=== PATIENT | female | born 1945 | race Caucasian/White ===

== ENCOUNTER 2016-12-06 09:50 | Day surgery (SDC) | payer MEDICARE, BC ==
[~2016-12-06 09:50] MED LIST: Dexamethasone 4 MG/ML SDV ONE; Midazolam 1 MG/ML 2 ML SDV ONE
[2016-12-06] MEDS ORDERED: Acetaminophen/Codeine 300-30 MG Tab PO PRN (10:00)
[2016-12-06] MEDS ORDERED: Acetaminophen 325 MG Tab PO PRN (10:00)
[2016-12-06] MEDS ORDERED: Phenylephrine 10% Ophth Soln 5 ML Bot EYELF ONE (10:00)
[2016-12-06] MEDS ORDERED: Timolol Maleate 0.5% Ophth Soln 5 ML Bottle EYELF ONE (10:00)
[2016-12-06] MEDS ORDERED: Povidone-Iodine 5% Sterile Ophth Soln 30 ML Bottle EYELF ONE ×2 (10:00→10:59)
[2016-12-06] MEDS ORDERED: Moxifloxacin 0.5% Ophth Soln 3 ML Bottle EYELF ONE (10:00)
[2016-12-06] MEDS ORDERED: Phenylephrine 10% Ophth Soln 5 ML Bot EYELF PRN (10:00)
[2016-12-06] MEDS ORDERED: Proparacaine 0.5% Ophth Soln 15 ML Bottle EYELF ONE (10:00)
[2016-12-06] MEDS ORDERED: Sodium Chloride 0.9% 10 ML Syringe FLUSH PRN (10:00)
[2016-12-06] MEDS ORDERED: Cataract Ophth Solution EYELF ONE (10:00)
[2016-12-06] MEDS ORDERED: Ondansetron 4 MG/2 ML SDV IVPUSH PRN (10:00)
[2016-12-06] MEDS ORDERED: Dexamethasone/Neomycin/Polymyxin B Ophth Oint 3.5 GM Tube EYELF ONE (10:59)
[2016-12-06] MEDS ORDERED: Apraclonidine 0.5% Ophth Soln 5 ML Bot EYELF ONE (10:59)
[2016-12-06] MEDS ORDERED: Diclofenac Sodium 0.1% Ophth Soln 5 ML Bottle EYELF ONE (10:59)
[2016-12-06] MEDS ORDERED: Chondroitin Sulfate/Hyaluronate Sodium Ophth Inj 0.75 ML Syringe EYELF ONE (11:00)
[2016-12-06] MEDS ORDERED: Lidocaine 1% 30 ML SDV ONE (11:00)
[2016-12-06] MEDS ORDERED: Balanced Salt Solution Ophth Irrig 500 ML Bottle IOCULAR ONE (11:00)
[2016-12-06] MEDS ORDERED: Vancomycin 500 MG SDV EYELF ONE (11:00)
[2016-12-06 11:49] VITALS: BP 134/68
[2016-12-06] MEDS ORDERED: Midazolam 1 MG/ML 2 ML SDV IV ONE (14:13)
[2016-12-06] MEDS ORDERED: Dexamethasone 4 MG/ML SDV IV ONE (14:13)
--- NOTE | 2016-12-06 14:56 | OR ---
DATE: 12/06/2016 PREOPERATIVE DIAGNOSIS: Cataract, left eye. POSTOPERATIVE DIAGNOSIS: Cataract, left eye. PROCEDURE: Extracapsular cataract extraction with intraocular lens implant, left eye. ANESTHESIA: Topical/local MAC. COMPLICATIONS: None. INDICATION: Ms. Velazco was seen in the clinic. She has complained of a slow progressive decrease in vision. She has difficulty seeing images, difficulty seeing at distance. Best spectacle corrected vision to the level of 20/50. Clinical examination reveals mixed cataract. I explained options and offered cataract surgery. I explained risks, including, but not limited to, infection, retinal detachment, loss of vision, need for additional surgery, and risks associated with anesthesia. We also discussed implant options. She has requested a monofocal implant. She is comfortable wearing spectacle correction following surgery if necessary. She voiced an understanding with respect to risks and limitations and wished to proceed. OPERATIVE DESCRIPTION: After informed consent was obtained and the risks, benefits, and alternatives were explained, the patient was brought to the operative suite and topical anesthesia was administered. The patient was then prepped and draped in the sterile fashion and attention was placed on the left eye. A sterile lid speculum was placed into the left eye to allow operative exposure. A full-thickness paracentesis was made in the temporal portion of the operative eye. Preservative-free lidocaine 0.1 mL was injected into the anterior chamber followed by viscoelastic. A full-thickness corneal incision was then made into the anterior chamber. A bent needle cystotome was used to create a small nghia in the anterior capsule. The capsulorrhexis forceps was then used to create a 360-degree curvilinear capsulorrhexis. The nucleus was then removed using a phacoemulsification handpiece and the remaining cortical material was then removed with irrigation and aspiration handpiece. Following removal of the cortical material, the capsular bag was then inspected and noted to be free of any holes or tears. Viscoelastic was then injected into the capsular bag and the intraocular lens was inserted into the capsular bag. No complications occurred. The viscoelastic material was then removed from both the anterior and posterior chambers and from behind the IOL. The lens and capsular bag were then reinspected. The IOL was well centered and the capsular bag intact. The wound and paracentesis sites were inspected and hydrated with balanced saline solution. Both were found to be self-sealing. The intraocular pressure was assessed digitally and found to be within normal range. A good red reflex was noted at the completion of the procedure. No complications occurred during the operation. At the completion of the procedure, Maxitrol, Voltaren, and Iopidine drops were placed into the operative eye. A sterile eye shield was placed over the operative eye and the patient was transported to the postoperative recovery area having tolerated the procedure well. Postoperative instructions were given along with a postoperative appointment. The patient was advised to call with any questions or concerns. [facility] /[id number]
== END 2016-12-06 11:50 | disposition home or self-care (01) ==
LOC: DL.SDS 09:50
PROVIDERS: ATTEND Ophthalmology
PROC: 08RK3JZ Replacement of Left Lens with Synthetic Substitute, Percutaneous Approach (ICD-10-PCS; principal; 2016-12-06)
DX: H26.9 Unspecified cataract (principal); F41.8 Other specified anxiety disorders; F32.9 Major depressive disorder, single episode, unspecified; E78.5 Hyperlipidemia, unspecified; E66.9 Obesity, unspecified; M81.0 Age-related osteoporosis without current pathological fracture; R73.03 Prediabetes; Z79.891 Long term (current) use of opiate analgesic; Z79.899 Other long term (current) drug therapy; Z88.8 Allergy status to other drugs, medicaments and biological substances
CPT/HCPCS: 00142; 66984; A9270; J1100; J2250; J3370; J7050; V2632

== ENCOUNTER 2016-12-13 07:00 | Day surgery (SDC) | payer MEDICARE, BC ==
[2016-12-13] MEDS ORDERED: Acetaminophen 325 MG Tab PO PRN (07:30)
[2016-12-13] MEDS ORDERED: Acetaminophen/Codeine 300-30 MG Tab PO PRN (07:30)
[2016-12-13] MEDS ORDERED: Cataract Ophth Solution EYERT ONE (07:30)
[2016-12-13] MEDS ORDERED: Phenylephrine 10% Ophth Soln 5 ML Bot EYERT ONE (07:30)
[2016-12-13] MEDS ORDERED: Sodium Chloride 0.9% 10 ML Syringe FLUSH PRN (07:30)
[2016-12-13] MEDS ORDERED: Ondansetron 4 MG/2 ML SDV IVPUSH PRN (07:30)
[2016-12-13] MEDS ORDERED: Moxifloxacin 0.5% Ophth Soln 3 ML Bottle EYERT ONE (07:30)
[2016-12-13] MEDS ORDERED: Phenylephrine 10% Ophth Soln 5 ML Bot EYERT PRN (07:30)
[2016-12-13] MEDS ORDERED: Timolol Maleate 0.5% Ophth Soln 5 ML Bottle EYERT ONE (07:30)
[2016-12-13] MEDS ORDERED: Povidone-Iodine 5% Sterile Ophth Soln 30 ML Bottle EYERT ONE ×2 (07:30→08:52)
[2016-12-13] MEDS ORDERED: Proparacaine 0.5% Ophth Soln 15 ML Bottle EYERT ONE (07:30)
[2016-12-13] MEDS ORDERED: Dexamethasone 4 MG/ML SDV ONE (07:33)
[2016-12-13] MEDS ORDERED: Midazolam 1 MG/ML 2 ML SDV ONE (07:33)
[2016-12-13] MEDS ORDERED: Lidocaine 1% 30 ML SDV ONE (08:51)
[2016-12-13] MEDS ORDERED: Diclofenac Sodium 0.1% Ophth Soln 5 ML Bottle EYERT ONE (08:51)
[2016-12-13] MEDS ORDERED: Dexamethasone/Neomycin/Polymyxin B Ophth Oint 3.5 GM Tube EYERT ONE (08:52)
[2016-12-13] MEDS ORDERED: Apraclonidine 0.5% Ophth Soln 5 ML Bot EYERT ONE (08:52)
[2016-12-13] MEDS ORDERED: Vancomycin 500 MG SDV EYERT ONE (08:53)
[2016-12-13] MEDS ORDERED: Balanced Salt Solution Ophth Irrig 500 ML Bottle IOCULAR ONE (08:53)
[2016-12-13] MEDS ORDERED: Chondroitin Sulfate/Hyaluronate Sodium Ophth Inj 0.75 ML Syringe EYERT ONE (08:53)
[2016-12-13] MEDS ORDERED: Tetracaine HCl/PF 0.5% 4 ML Bottle EYERT ONE (08:55)
[2016-12-13] MEDS ORDERED: Dexamethasone 4 MG/ML SDV IOCULAR ONE (08:57)
--- NOTE | 2016-12-13 09:36 | OR ---
DATE: 12/13/2016 PREOPERATIVE DIAGNOSIS: Cataract, right eye POSTOPERATIVE DIAGNOSIS: Cataract, right eye PROCEDURE: Extracapsular cataract extraction with intraocular lens implant, right eye. ANESTHESIA: Topical/local MAC. COMPLICATIONS: None. INDICATION: Mrs. Velazco was seen in the clinic with complaints of blurred vision. Clinical examination revealed visually significant cataract. I explained options. I offered cataract surgery and I explained risks, including, but not limited to, infection, retinal detachment, loss of vision, need for additional surgery, and risks associated with anesthesia. We discussed implant options. She requested a monofocal implant. She voiced an understanding with respect to risks and wished to proceed. OPERATIVE DESCRIPTION: After informed consent was obtained and the risks, benefits, and alternatives were explained, the patient was brought to the operative suite and topical anesthesia was administered. The patient was then prepped and draped in the sterile fashion and attention was placed on the right eye. A sterile lid speculum was placed into the right eye to allow operative exposure. A full-thickness paracentesis was made in the temporal portion of the operative eye. Preservative-free lidocaine 0.1 mL was injected into the anterior chamber followed by viscoelastic. A full-thickness corneal incision was then made into the anterior chamber. A bent needle cystotome was used to create a small nghia in the anterior capsule. The capsulorrhexis forceps was then used to create a 360-degree curvilinear capsulorrhexis. The nucleus was then removed using a phacoemulsification handpiece and the remaining cortical material was then removed with irrigation and aspiration handpiece. Following removal of the cortical material, the capsular bag was then inspected and noted to be free of any holes or tears. Viscoelastic was then injected into the capsular bag and the intraocular lens was inserted into the capsular bag. No complications occurred. The viscoelastic material was then removed from both the anterior and posterior chambers and from behind the IOL. The lens and capsular bag were then reinspected. The IOL was well centered and the capsular bag intact. The wound and paracentesis sites were inspected and hydrated with balanced saline solution. Both were found to be self-sealing. The intraocular pressure was assessed digitally and found to be within normal range. A good red reflex was noted at the completion of the procedure. No complications occurred during the operation. At the completion of the procedure, Maxitrol, Voltaren, and Iopidine drops were placed into the operative eye. A sterile eye shield was placed over the operative eye and the patient was transported to the postoperative recovery area having tolerated the procedure well. Postoperative instructions were given along with a postoperative appointment. The patient was advised to call with any questions or concerns. [facility] /[id number]
[2016-12-13 10:49] VITALS: BP 119/66
[2016-12-13] MEDS ORDERED: Dexamethasone 4 MG/ML SDV IV ONE (13:18)
[2016-12-13] MEDS ORDERED: Midazolam 1 MG/ML 2 ML SDV IV ONE (13:18)
== END 2016-12-13 09:50 | disposition home or self-care (01) ==
LOC: DL.SDS 07:00
PROVIDERS: ATTEND Ophthalmology
DX: H26.9 Unspecified cataract (principal); F41.8 Other specified anxiety disorders; E66.9 Obesity, unspecified; E78.5 Hyperlipidemia, unspecified; Z68.30 Body mass index [BMI] 30.0-30.9, adult; R73.03 Prediabetes; Z90.49 Acquired absence of other specified parts of digestive tract; Z90.710 Acquired absence of both cervix and uterus; Z98.890 Other specified postprocedural states; Z88.8 Allergy status to other drugs, medicaments and biological substances
CPT/HCPCS: 00142; 66984; A9270; J1100; J2250; J3370; J7050; V2632

== ENCOUNTER 2021-07-28 09:47 | Emergency (ER) | payer MEDICARE, BC ==
[2021-07-28 11:09] VITALS: BP 141/56; PULSE 65
[2021-07-28 11:21] LABS: ANION GAP 16.4 mEq/L (7-13); CHLORIDE,CL 98 mmol/L (98-107); SODIUM,NA 140 mmol/L (136-145)
[2021-07-28] MEDS ORDERED: Sodium Chloride 0.9% 1,000 ML IV ONE (12:23)
== END 2021-07-28 13:00 | disposition home or self-care (01) ==
LOC: DL.ED 09:47
DX: U07.1 COVID-19 (principal); J10.1 Influenza due to other identified influenza virus with other respiratory manifestations; E78.00 Pure hypercholesterolemia, unspecified; E66.9 Obesity, unspecified; Z68.28 Body mass index [BMI] 28.0-28.9, adult; Z88.8 Allergy status to other drugs, medicaments and biological substances; Z79.82 Long term (current) use of aspirin; Z79.899 Other long term (current) drug therapy
CPT/HCPCS: 36415; 71045; 80053; 83605; 84484; 85025; 85379; 93005; 99285; J7030

== ENCOUNTER 2024-03-12 09:57 | Observation (INO) | payer MEDICARE, BC ==
[2024-03-12 10:34] LABS: BASOPHILS PERCENT AUTO 0.2 % (0.0-1.0); EOSINOPHILS PERCENT AUTO 3.9 % (1.0-3.0); HEMATOCRIT 35.3 % (37.0-47.0); HEMOGLOBIN 11.1 g/dL (12.0-16.0); LYMPHOCYTES PERCENT AUTO 18.7 % (20.5-50.1); MEAN CORPUSCULAR HEMOGLOBIN 28.1 pg (27.0-34.0); MEAN CORPUSCULAR HGB CONC 31.4 g/dL (33.0-35.0); MEAN CORPUSCULAR VOLUME 89.4 fL (80-100); MONOCYTES PERCENT AUTO 8.9 % (2-8); NEUTROPHILS PERCENT AUTO 68.3 % (42.2-75.2); PLATELET COUNT,PLT 133 10^3/uL (150-450); RED BLOOD CELL COUNT 3.95 10^6/uL (4.2-5.4); WHITE BLOOD CELL COUNT,WBC 5.6 10^3/uL (5.0-10.0)
[2024-03-12 10:48] LABS: APPEARANCE,URINE CLEAR (CLEAR); BILIRUBIN,URINE NEGATIVE (NEGATIVE); COLOR,URINE YELLOW (YELLOW); GLUCOSE,URINE NEGATIVE (NEGATIVE); KETONES,URINE NEGATIVE (NEGATIVE); LEUKOCYTE ESTERASE,URINE NEGATIVE (NEGATIVE); NITRITE,URINE NEGATIVE (NEGATIVE); OCCULT BLOOD,URINE NEGATIVE (NEGATIVE); PH,URINE 6.5 (5.0-9.0); PROTEIN,URINE NEGATIVE (NEGATIVE)
[2024-03-12 10:51] LABS: INR 1.8 (0.9-1.2); PROTHROMBIN TIME 17.7 SEC (9.0-12.0)
[2024-03-12 10:55] LABS: A/G RATIO 1.3; ALBUMIN 3.6 g/dL (3.4-5.0); ANION GAP 10.1 mEq/L (7-13); BILIRUBIN TOTAL 1.4 mg/dL (0.2-1.0); BUN/CREATININE RATIO 21.5 (No establ ref range); CALCIUM 9.6 mg/dL (8.5-10.1); CREATININE 0.93 mg/dL (0.55-1.02); EST CRCL DRUG DOSING (CG) 38.16 mL/min; POTASSIUM,K 4.1 mmol/L (3.5-5.1); PROTEIN TOTAL,TP 6.3 g/dL (6.4-8.2)
[2024-03-12] MEDS: methylPREDNISolone Sodium Succinate 125 MG/2 ML SDV IVPUSH ONE (11:43)
[2024-03-12] MEDS: Albuterol/Ipratropium 3.0-0.5 MG/3 ML Neb Soln NEB ONE (11:43)
[2024-03-12] MEDS ORDERED: Acetaminophen 325 MG Tab PO PRN (13:49)
[2024-03-12] MEDS ORDERED: Melatonin 3 MG Tab PO PRN (13:49)
[2024-03-12] MEDS ORDERED: Ondansetron 4 MG/2 ML SDV IVPUSH PRN (13:49)
[2024-03-12] MEDS ORDERED: guaiFENesin 600 MG Tab.ER PO PRN (14:24)
[2024-03-12] MEDS ORDERED: guaiFENesin/Dextromethorphan 100-10 MG/5 ML Soln 5 ML Cup PO PRN (14:25)
[2024-03-12] MEDS ORDERED: Sodium Chloride 0.9% 10 ML Syringe FLUSH PRN (14:33)
[2024-03-12] MEDS: Carvedilol 3.125 MG Tab PO ONE (14:41)
[2024-03-12] MEDS: Amoxicillin/Clavulanate K 500-125 MG Tab PO ONE (15:04)
[2024-03-12] MEDS: MVI, Adult with Vitamin K 10 ML, Folic Acid 1 MG, Thiamine 100 MG in Lactated Ringers 1... IV ONE (15:04)
[2024-03-12 15:05] LABS: T4 FREE 1.16 ng/dL (0.76-1.46); TSH ULTRASENSITIVE 1.03 uIU/mL (0.36-3.74)
[2024-03-12] MEDS ORDERED: FISH OIL PO SCH (21:00)
[2024-03-12] MEDS ORDERED: OMEGA PO SCH (21:00)
[2024-03-12] MEDS ORDERED: FATTY ACIDS PO SCH (21:00)
[2024-03-12] MEDS ORDERED: [UNRECOGNIZED DRUG - OTHER] PO SCH (21:00)
[2024-03-12] MEDS: Warfarin** 1 MG TABLET PO ONE (21:09)
[2024-03-12] MEDS: Carbidopa/Levodopa 25-250 MG Tab PO SCH (21:09)
[2024-03-12] MEDS: Ferrous Sulfate 325 MG Tab PO SCH (21:10)
[2024-03-12] MEDS: Carvedilol 3.125 MG Tab PO SCH (21:10)
[2024-03-12] MEDS: Amoxicillin/Clavulanate K 500-125 MG Tab PO SCH (21:10)
[2024-03-12] MEDS: Saccharomyces Boulardii (Probiotic) 250 MG Cap PO SCH (21:11)
[2024-03-12] MEDS: Gabapentin 300 MG Cap PO SCH ×2 (21:15→23:39)
[2024-03-12] MEDS: Enoxaparin 40 MG/0.4 ML Syringe SUBCUT SCH (21:16)
[2024-03-12] MEDS: Timolol Maleate 0.5% Ophth Soln 5 ML Bottle EYERT SCH (21:21)
[2024-03-12] MEDS: Latanoprost 0.005% Ophth Soln 2.5 ML Bottle EYERT SCH (21:22)
[2024-03-13] MEDS: LORazepam 0.5 MG Tab PO PRN (00:06)
[2024-03-13 06:07] LABS: BASOPHILS PERCENT AUTO 0.2 % (0.0-1.0); HEMATOCRIT 31.8 % (37.0-47.0); HEMOGLOBIN 10.2 g/dL (12.0-16.0); LYMPHOCYTES PERCENT AUTO 15.6 % (20.5-50.1); MEAN CORPUSCULAR HEMOGLOBIN 28.3 pg (27.0-34.0); MEAN CORPUSCULAR HGB CONC 32.1 g/dL (33.0-35.0); MEAN CORPUSCULAR VOLUME 88.3 fL (80-100); NEUTROPHILS PERCENT AUTO 77.2 % (42.2-75.2); PLATELET COUNT,PLT 127 10^3/uL (150-450)
[2024-03-13 06:19] LABS: INR 1.5 (0.9-1.2)
[2024-03-13 06:34] LABS: ALBUMIN 3.2 g/dL (3.4-5.0); ANION GAP 8.1 mEq/L (7-13); BILIRUBIN TOTAL 1.1 mg/dL (0.2-1.0); BUN/CREATININE RATIO 25.3 (No establ ref range); C-REACTIVE PROTEIN 2.43 ng/dL (<=0.50); CALCIUM 9.3 mg/dL (8.5-10.1); CREATININE 0.83 mg/dL (0.55-1.02); EST CRCL DRUG DOSING (CG) 42.76 mL/min; MAGNESIUM 1.9 mg/dL (1.8-2.4); POTASSIUM,K 4.1 mmol/L (3.5-5.1); PROTEIN TOTAL,TP 5.8 g/dL (6.4-8.2)
[2024-03-13 06:35] LABS: A/G RATIO 1.23
[2024-03-13] MEDS: Aspirin 81 MG Tab.EC PO SCH (07:56)
[2024-03-13] MEDS: DULoxetine 30 MG Cap PO SCH (07:57)
[2024-03-13] MEDS: Furosemide 20 MG Tab PO SCH (07:58)
[2024-03-13] MEDS: Spironolactone 25 MG Tab PO SCH (07:59)
[2024-03-13] MEDS: Cholecalciferol (Vitamin D3) 25 MCG Tab PO SCH (08:01)
[2024-03-13] MEDS ORDERED: Enoxaparin 60 MG/0.6 ML Syringe SUBCUT SCH (09:00)
[2024-03-13] MEDS: Enoxaparin 100 MG/1 ML Syringe SUBCUT SCH (10:03)
[2024-03-13 11:33] VITALS: BP 96/50; PULSE 94
[2024-03-13] MEDS ORDERED: Calcium Carbonate/Vitamin D3 1250 MG-5 MCG Tab PO SCH (13:00)
[2024-03-13] MEDS ORDERED: Warfarin 2 MG Tab PO ONE (21:00)
== END 2024-03-13 11:30 | disposition home or self-care (01) ==
LOC: DL.ED 09:57 → DL.MS 13:04 → DL.ED 13:13
PROVIDERS: ADMIT Internal Medicine; ATTEND Internal Medicine
DX: J20.8 Acute bronchitis due to other specified organisms (principal); I48.92 Unspecified atrial flutter; G20.A1 Parkinson's disease without dyskinesia, without mention of fluctuations; D50.9 Iron deficiency anemia, unspecified; I10 Essential (primary) hypertension; E78.5 Hyperlipidemia, unspecified; I25.10 Atherosclerotic heart disease of native coronary artery without angina pectoris; Z95.1 Presence of aortocoronary bypass graft; Z79.82 Long term (current) use of aspirin; Z79.899 Other long term (current) drug therapy
CPT/HCPCS: 36415; 71045; 80053; 81003; 82306; 83605; 83735; 84439; 84443; 84484; 85025; 85379; 85610; 86140; 87804; 93005; 96374; 97165; 99285; A9270; J1650; J2919; J3411; J7120; U0002; J3490; J7620-GY

== ENCOUNTER 2024-05-17 11:34 | Emergency (ER) | payer MEDICARE, BC ==
[2024-05-17 12:21] LABS: BASOPHILS PERCENT AUTO 0.1 % (0.0-1.0); EOSINOPHILS PERCENT AUTO 0.1 % (1.0-3.0); HEMATOCRIT 36.5 % (37.0-47.0); HEMOGLOBIN 11.4 g/dL (12.0-16.0); LYMPHOCYTES PERCENT AUTO 3.9 % (20.5-50.1); MEAN CORPUSCULAR HEMOGLOBIN 27.4 pg (27.0-34.0); MEAN CORPUSCULAR HGB CONC 31.2 g/dL (33.0-35.0); MEAN CORPUSCULAR VOLUME 87.7 fL (80-100); MONOCYTES PERCENT AUTO 4.7 % (2-8); NEUTROPHILS PERCENT AUTO 91.2 % (42.2-75.2); PLATELET COUNT,PLT 61 10^3/uL (150-450); RED BLOOD CELL COUNT 4.16 10^6/uL (4.2-5.4); WHITE BLOOD CELL COUNT,WBC 15.2 10^3/uL (5.0-10.0)
[2024-05-17 12:30] LABS: INR 3.6 (0.9-1.2)
[2024-05-17 12:38] LABS: A/G RATIO 1.5; ALBUMIN 3.4 g/dL (3.4-5.0); ANION GAP 12.8 mEq/L (7-13); BILIRUBIN TOTAL 3.2 mg/dL (0.2-1.0); BUN/CREATININE RATIO 17.9 (No establ ref range); CALCIUM 8.8 mg/dL (8.5-10.1); CREATININE 1.06 mg/dL (0.55-1.02); EST CRCL DRUG DOSING (CG) 33.48 mL/min; MAGNESIUM 1.6 mg/dL (1.8-2.4); POTASSIUM,K 3.8 mmol/L (3.5-5.1); PROTEIN TOTAL,TP 5.7 g/dL (6.4-8.2)
[2024-05-17] MEDS: Sodium Chloride 0.9% 1,000 ML IV ONE ×2 (12:42→13:30)
[2024-05-17 13:44] LABS: LACTIC ACID 1.8 mmol/L (0.4-2.0)
[2024-05-17] MEDS: Iopamidol 612 MG/ML 100 ML Bottle IVPUSH ONE (14:01)
[2024-05-17] MEDS: LORazepam 0.5 MG Tab PO ONE (16:11)
[2024-05-17 16:29] VITALS: BP 118/75; PULSE 129
== END 2024-05-17 16:18 | disposition hospice, inpatient (51) ==
LOC: DL.ED 11:34
DX: E86.9 Volume depletion, unspecified (principal); E78.00 Pure hypercholesterolemia, unspecified; K21.9 Gastro-esophageal reflux disease without esophagitis; E66.9 Obesity, unspecified; Z86.16 Personal history of COVID-19; Z79.899 Other long term (current) drug therapy; Z79.82 Long term (current) use of aspirin; Z88.8 Allergy status to other drugs, medicaments and biological substances
CPT/HCPCS: 36415; 70450; 71045; 74177; 80053; 83605; 83735; 84484; 85025; 85610; 96360; 96361; 99285; A9270; J7030; Q9967

== ENCOUNTER 2024-05-24 06:42 | Emergency (ER) | payer MEDICARE, BC ==
[2024-05-24] MEDS: Sodium Chloride 0.9% 500 ML IV SCH (07:10)
[2024-05-24 07:24] LABS: BASOPHILS PERCENT AUTO 0.1 % (0.0-1.0); HEMATOCRIT 33.8 % (37.0-47.0); HEMOGLOBIN 10.8 g/dL (12.0-16.0); LYMPHOCYTES PERCENT AUTO 10.2 % (20.5-50.1); MEAN CORPUSCULAR HEMOGLOBIN 27.1 pg (27.0-34.0); MEAN CORPUSCULAR VOLUME 84.7 fL (80-100); MONOCYTES PERCENT AUTO 9.2 % (2-8); NEUTROPHILS PERCENT AUTO 80.5 % (42.2-75.2); PLATELET COUNT,PLT 97 10^3/uL (150-450); RED BLOOD CELL COUNT 3.99 10^6/uL (4.2-5.4); WHITE BLOOD CELL COUNT,WBC 8.5 10^3/uL (5.0-10.0)
[2024-05-24 07:28] LABS: INR 1.7 (0.9-1.2); PROTHROMBIN TIME 16.6 SEC (9.0-12.0)
[2024-05-24 07:29] LABS: ALBUMIN 2.9 g/dL (3.4-5.0); ANION GAP 12.1 mEq/L (7-13); BILIRUBIN TOTAL 1.5 mg/dL (0.2-1.0); CALCIUM 8.2 mg/dL (8.5-10.1); CREATININE 1.07 mg/dL (0.55-1.02); EST CRCL DRUG DOSING (CG) 33.17 mL/min; LACTIC ACID 1.1 mmol/L (0.4-2.0); POTASSIUM,K 3.1 mmol/L (3.5-5.1); PROTEIN TOTAL,TP 5.5 g/dL (6.4-8.2)
[2024-05-24 07:32] LABS: A/G RATIO 1.12
[2024-05-24] MEDS: Aspirin 81 MG Tab.Chew PO ONE (08:32)
[2024-05-24] MEDS: Heparin Sodium/0.45% NaCl 25,000 UNITS/500 ML BAG IV SCH (08:33)
[2024-05-24] MEDS: Heparin Sodium 5,000 Units/ML Vial IV ONE (08:48)
[2024-05-24] MEDS: Iopamidol 612 MG/ML 100 ML Bottle IVPUSH ONE (09:36)
[2024-05-24 13:42] VITALS: BP 124/71; PULSE 81
== END 2024-05-24 14:15 | disposition other institution (70) ==
LOC: DL.ED 06:42
DX: I21.4 Non-ST elevation (NSTEMI) myocardial infarction (principal); I48.92 Unspecified atrial flutter; I25.10 Atherosclerotic heart disease of native coronary artery without angina pectoris; I48.91 Unspecified atrial fibrillation; E78.00 Pure hypercholesterolemia, unspecified; M19.90 Unspecified osteoarthritis, unspecified site; E66.9 Obesity, unspecified; Z86.16 Personal history of COVID-19; Z95.2 Presence of prosthetic heart valve; Z95.5 Presence of coronary angioplasty implant and graft; Z90.49 Acquired absence of other specified parts of digestive tract; Z90.710 Acquired absence of both cervix and uterus; Z88.8 Allergy status to other drugs, medicaments and biological substances; Z79.01 Long term (current) use of anticoagulants; Z79.82 Long term (current) use of aspirin; Z79.899 Other long term (current) drug therapy; Z68.29 Body mass index [BMI] 29.0-29.9, adult
CPT/HCPCS: 36415; 71045; 74177; 80053; 83605; 83880; 84484; 85025; 85610; 85730; 87040; 87077; 93005; 96361; 96365; 96366; 99285; A9270; J1644; J7040; Q9967; 93010

== ENCOUNTER 2024-06-06 09:29 | Emergency (ER) | payer MEDICARE, BC ==
[2024-06-06] MEDS ORDERED: Sodium Chloride 0.9% 10 ML Syringe FLUSH PRN (09:40)
[2024-06-06 09:58] LABS: HEMATOCRIT 37.3 % (37.0-47.0); HEMOGLOBIN 11.9 g/dL (12.0-16.0); LYMPHOCYTES PERCENT AUTO 4.4 % (20.5-50.1); MEAN CORPUSCULAR HEMOGLOBIN 27.1 pg (27.0-34.0); MEAN CORPUSCULAR HGB CONC 31.9 g/dL (33.0-35.0); MONOCYTES PERCENT AUTO 6.2 % (2-8); NEUTROPHILS PERCENT AUTO 89.4 % (42.2-75.2); PLATELET COUNT,PLT 157 10^3/uL (150-450); RED BLOOD CELL COUNT 4.39 10^6/uL (4.2-5.4); WHITE BLOOD CELL COUNT,WBC 25.1 10^3/uL (5.0-10.0)
[2024-06-06 10:21] LABS: A/G RATIO 1.1; ALBUMIN 3.4 g/dL (3.4-5.0); ANION GAP 13.6 mEq/L (7-13); BILIRUBIN TOTAL 2.1 mg/dL (0.2-1.0); BUN/CREATININE RATIO 11.9 (No establ ref range); CALCIUM 8.9 mg/dL (8.5-10.1); CREATININE 1.18 mg/dL (0.55-1.02); EST CRCL DRUG DOSING (CG) 30.07 mL/min; LACTIC ACID 1.6 mmol/L (0.4-2.0); MAGNESIUM 1.5 mg/dL (1.8-2.4); POTASSIUM,K 3.6 mmol/L (3.5-5.1); PROTEIN TOTAL,TP 6.5 g/dL (6.4-8.2)
[2024-06-06] MEDS: cefTRIAXone 2 GM Vial IVPUSH ONE (10:29)
[2024-06-06] MEDS: Aspirin 81 MG Tab.Chew PO ONE (10:29)
[2024-06-06 10:30] LABS: INR 4.2 (0.9-1.2); PROTHROMBIN TIME 39.6 SEC (9.0-12.0); PTT,PARTIAL THROMBOPLSTIN TIME 41.3 SEC (22.0-34.0)
[2024-06-06 10:56] VITALS: BP 112/51; PULSE 71
[2024-06-06 12:37] LABS: APPEARANCE,URINE SLIGHTLY CLOUDY (CLEAR); BILIRUBIN,URINE SMALL (NEGATIVE); COLOR,URINE YELLOW (YELLOW); GLUCOSE,URINE NEGATIVE (NEGATIVE); KETONES,URINE TRACE (NEGATIVE); LEUKOCYTE ESTERASE,URINE TRACE (NEGATIVE); NITRITE,URINE NEGATIVE (NEGATIVE); OCCULT BLOOD,URINE NEGATIVE (NEGATIVE); PH,URINE 5.5 (5.0-9.0); PROTEIN,URINE 100 (NEGATIVE); UROBILINOGEN,URINE 0.2 mg/dL (0.2-1.0)
[2024-06-06] MEDS: Heparin Sodium/0.45% NaCl 25,000 UNITS/500 ML BAG IV SCH (12:38)
[2024-06-06 12:53] LABS: BACTERIA,URINE MODERATE /HPF (0-FEW/HPF); EPITHELIAL CELLS,URINE MANY /HPF (NOT SEEN); MUCUS,URINE FEW /LPF (NOT SEEN); RBC,URINE 0-5 /HPF (0-5)
== END 2024-06-06 13:03 ==
LOC: DL.ED 09:29
DX: I21.4 Non-ST elevation (NSTEMI) myocardial infarction (principal); D72.829 Elevated white blood cell count, unspecified; I25.10 Atherosclerotic heart disease of native coronary artery without angina pectoris; E78.00 Pure hypercholesterolemia, unspecified; M19.90 Unspecified osteoarthritis, unspecified site; E66.9 Obesity, unspecified; Z95.5 Presence of coronary angioplasty implant and graft; Z90.49 Acquired absence of other specified parts of digestive tract; Z90.710 Acquired absence of both cervix and uterus; Z88.8 Allergy status to other drugs, medicaments and biological substances; Z79.82 Long term (current) use of aspirin; Z79.01 Long term (current) use of anticoagulants; Z79.899 Other long term (current) drug therapy; Z68.25 Body mass index [BMI] 25.0-25.9, adult
CPT/HCPCS: 36415; 70450; 71046; 80053; 81001; 82550; 83605; 83735; 83880; 84484; 85025; 85610; 85730; 87040; 87086; 87428; 93005; 96365; 96375; 99285; A9270; J0696; J1644

== ENCOUNTER 2024-07-18 13:58 | Inpatient (IN) | payer MEDICARE, BC ==
[2024-07-18] MEDS ORDERED: Acetaminophen/HYDROcodone 325-5 MG Tab PO PRN (15:32)
[2024-07-18] MEDS ORDERED: Acetaminophen 325 MG Tab PO PRN (15:32)
[2024-07-18] MEDS ORDERED: Ondansetron 4 MG/2 ML SDV IVPUSH PRN (15:32)
[2024-07-18] MEDS ORDERED: Melatonin 3 MG Tab PO PRN (15:32)
[2024-07-18] MEDS ORDERED: Docusate Sodium 100 MG Cap PO PRN (15:32)
[2024-07-18] MEDS ORDERED: LORazepam 0.5 MG Tab PO PRN (15:46)
[2024-07-18 16:01] LABS: BASOPHILS PERCENT AUTO 0.2 % (0.0-1.0); EOSINOPHILS PERCENT AUTO 0.8 % (1.0-3.0); HEMATOCRIT 33.6 % (37.0-47.0); HEMOGLOBIN 10.5 g/dL (12.0-16.0); LYMPHOCYTES PERCENT AUTO 22.6 % (20.5-50.1); MEAN CORPUSCULAR HEMOGLOBIN 26.7 pg (27.0-34.0); MEAN CORPUSCULAR HGB CONC 31.3 g/dL (33.0-35.0); MEAN CORPUSCULAR VOLUME 85.5 fL (80-100); NEUTROPHILS PERCENT AUTO 66.4 % (42.2-75.2); PLATELET COUNT,PLT 61 10^3/uL (150-450); RED BLOOD CELL COUNT 3.93 10^6/uL (4.2-5.4); WHITE BLOOD CELL COUNT,WBC 6.6 10^3/uL (5.0-10.0)
[2024-07-18] MEDS: Furosemide 40 MG/4 ML VIAL IVPUSH SCH (16:02)
[2024-07-18] MEDS: Sodium Chloride 0.9% 10 ML Syringe FLUSH PRN (16:02)
[2024-07-18 16:16] LABS: ANION GAP 12.2 mEq/L (7-13); CALCIUM 8.7 mg/dL (8.5-10.1); CREATININE 1.54 mg/dL (0.55-1.02); EST CRCL DRUG DOSING (CG) 23.04 mL/min; MAGNESIUM 1.8 mg/dL (1.8-2.4); POTASSIUM,K 4.2 mmol/L (3.5-5.1)
[2024-07-18 16:33] LABS: INR 8.4 (0.9-1.2)
[2024-07-18] MEDS: Phytonadione 5 MG Tab PO ONE (18:14)
[2024-07-18] MEDS ORDERED: FISH OIL PO SCH (21:00)
[2024-07-18] MEDS ORDERED: [UNRECOGNIZED DRUG - OTHER] PO SCH (21:00)
[2024-07-18] MEDS ORDERED: OMEGA PO SCH (21:00)
[2024-07-18] MEDS ORDERED: FATTY ACIDS PO SCH (21:00)
[2024-07-18] MEDS: Carbidopa/Levodopa 25-250 MG Tab PO SCH (21:42)
[2024-07-18] MEDS: Gabapentin 300 MG Cap PO SCH (21:42)
[2024-07-18] MEDS: Rosuvastatin 10 MG Tab PO SCH (21:42)
[2024-07-18] MEDS: rOPINIRole 0.25 MG Tab PO SCH (21:42)
[2024-07-18] MEDS: Latanoprost 0.005% Ophth Soln 2.5 ML Bottle EYERT SCH (21:43)
[2024-07-18] MEDS: Timolol Maleate 0.5% Ophth Soln 5 ML Bottle EYERT SCH (21:44)
[2024-07-18] MEDS: Metoprolol Tartrate 25 MG Tab PO SCH (21:46)
[2024-07-18] MEDS: Sodium Chloride 0.9% 10 ML Syringe FLUSH SCH (21:46)
[2024-07-19] MEDS: Omeprazole 20 MG Cap.CR PO SCH (05:31)
[2024-07-19 06:40] LABS: EOSINOPHILS PERCENT AUTO 1.7 % (1.0-3.0); HEMATOCRIT 34.8 % (37.0-47.0); HEMOGLOBIN 10.6 g/dL (12.0-16.0); LYMPHOCYTES PERCENT AUTO 26.6 % (20.5-50.1); MEAN CORPUSCULAR HEMOGLOBIN 26.2 pg (27.0-34.0); MEAN CORPUSCULAR HGB CONC 30.5 g/dL (33.0-35.0); MEAN CORPUSCULAR VOLUME 85.9 fL (80-100); MONOCYTES PERCENT AUTO 8.6 % (2-8); NEUTROPHILS PERCENT AUTO 63.1 % (42.2-75.2); PLATELET COUNT,PLT 66 10^3/uL (150-450); RED BLOOD CELL COUNT 4.05 10^6/uL (4.2-5.4); WHITE BLOOD CELL COUNT,WBC 6.6 10^3/uL (5.0-10.0)
[2024-07-19 06:57] LABS: ANION GAP 14.1 mEq/L (7-13); CALCIUM 8.8 mg/dL (8.5-10.1); CREATININE 1.38 mg/dL (0.55-1.02); EST CRCL DRUG DOSING (CG) 26.9 mL/min; MAGNESIUM 1.9 mg/dL (1.8-2.4); POTASSIUM,K 4.1 mmol/L (3.5-5.1)
[2024-07-19 07:13] LABS: PROTHROMBIN TIME 51.8 SEC (9.0-12.0)
[2024-07-19 07:24] LABS: INR 5.6 (0.9-1.2)
[2024-07-19] MEDS: DULoxetine 30 MG Cap PO SCH (08:45)
[2024-07-19] MEDS: Multivitamin Tab PO SCH (08:46)
[2024-07-19] MEDS: Phytonadione 5 MG Tab PO ONE (08:46)
[2024-07-19] MEDS: Calcium Carbonate/Vitamin D3 1250 MG-5 MCG Tab PO SCH (08:49)
[2024-07-19] MEDS: Amiodarone 200 MG Tab PO SCH (08:49)
[2024-07-19] MEDS: Cyanocobalamin (Vitamin B12) 1,000 MCG Tab PO SCH (08:49)
[2024-07-19] MEDS: Spironolactone 25 MG Tab PO SCH (08:49)
[2024-07-19] MEDS: Aspirin 81 MG Tab.EC PO SCH (08:49)
[2024-07-19] MEDS: Cholecalciferol (Vitamin D3) 25 MCG Tab PO SCH (08:51)
[2024-07-20 07:10] LABS: BASOPHILS PERCENT AUTO 0.2 % (0.0-1.0); EOSINOPHILS PERCENT AUTO 1.8 % (1.0-3.0); HEMATOCRIT 34.5 % (37.0-47.0); HEMOGLOBIN 10.5 g/dL (12.0-16.0); LYMPHOCYTES PERCENT AUTO 29.1 % (20.5-50.1); MEAN CORPUSCULAR HEMOGLOBIN 26.3 pg (27.0-34.0); MEAN CORPUSCULAR HGB CONC 30.4 g/dL (33.0-35.0); MEAN CORPUSCULAR VOLUME 86.5 fL (80-100); MONOCYTES PERCENT AUTO 9.9 % (2-8); PLATELET COUNT,PLT 72 10^3/uL (150-450); RED BLOOD CELL COUNT 3.99 10^6/uL (4.2-5.4); WHITE BLOOD CELL COUNT,WBC 5.6 10^3/uL (5.0-10.0)
[2024-07-20 07:15] LABS: INR 1.9 (0.9-1.2); PROTHROMBIN TIME 18.8 SEC (9.0-12.0)
[2024-07-20 07:25] LABS: ANION GAP 9.7 mEq/L (7-13); CALCIUM 8.6 mg/dL (8.5-10.1); CREATININE 1.27 mg/dL (0.55-1.02); EST CRCL DRUG DOSING (CG) 29.23 mL/min; MAGNESIUM 1.8 mg/dL (1.8-2.4); POTASSIUM,K 3.7 mmol/L (3.5-5.1)
[2024-07-20] MEDS: Warfarin 2.5 MG Tab PO ONE (14:47)
[2024-07-20] MEDS: Furosemide 40 MG/4 ML VIAL IVPUSH SCH (14:49)
[2024-07-20] MEDS ORDERED: Apixaban 5 MG Tab PO SCH (21:00)
[2024-07-21 06:52] LABS: BASOPHILS PERCENT AUTO 0.2 % (0.0-1.0); HEMATOCRIT 32.9 % (37.0-47.0); LYMPHOCYTES PERCENT AUTO 26.4 % (20.5-50.1); MEAN CORPUSCULAR HEMOGLOBIN 26.3 pg (27.0-34.0); MEAN CORPUSCULAR HGB CONC 30.4 g/dL (33.0-35.0); MEAN CORPUSCULAR VOLUME 86.6 fL (80-100); MONOCYTES PERCENT AUTO 8.8 % (2-8); NEUTROPHILS PERCENT AUTO 62.6 % (42.2-75.2); PLATELET COUNT,PLT 86 10^3/uL (150-450); WHITE BLOOD CELL COUNT,WBC 5.9 10^3/uL (5.0-10.0)
[2024-07-21 07:00] LABS: ANION GAP 9.7 mEq/L (7-13); CALCIUM 8.6 mg/dL (8.5-10.1); CREATININE 1.21 mg/dL (0.55-1.02); EST CRCL DRUG DOSING (CG) 30.67 mL/min; MAGNESIUM 1.7 mg/dL (1.8-2.4); POTASSIUM,K 3.7 mmol/L (3.5-5.1)
[2024-07-21 07:01] LABS: INR 1.7 (0.9-1.2); PROTHROMBIN TIME 17.2 SEC (9.0-12.0)
[2024-07-21] MEDS: Magnesium Oxide 400 MG Tab PO SCH (08:48)
[2024-07-21 08:51] VITALS: BP 124/53; PULSE 60
[2024-07-21] MEDS: Enoxaparin 60 MG/0.6 ML Syringe SUBCUT SCH (12:18)
[2024-07-21] MEDS ORDERED: Warfarin 2.5 MG Tab PO ONE (14:00)
== END 2024-07-21 12:45 | disposition home or self-care (01) | DRG 292 ==
LOC: DL.MS 14:45
PROVIDERS: ADMIT Internal Medicine; ATTEND Student in an Organized Health Care Education/Training Program
DX: I11.0 Hypertensive heart disease with heart failure (principal); E87.1 Hypo-osmolality and hyponatremia; N17.9 Acute kidney failure, unspecified; I48.92 Unspecified atrial flutter; E78.00 Pure hypercholesterolemia, unspecified; I25.10 Atherosclerotic heart disease of native coronary artery without angina pectoris; M81.0 Age-related osteoporosis without current pathological fracture; I50.9 Heart failure, unspecified; F41.1 Generalized anxiety disorder; G20.A1 Parkinson's disease without dyskinesia, without mention of fluctuations; F32.A Depression, unspecified; H26.9 Unspecified cataract; K21.9 Gastro-esophageal reflux disease without esophagitis; M19.90 Unspecified osteoarthritis, unspecified site; E66.9 Obesity, unspecified; D53.9 Nutritional anemia, unspecified; D69.6 Thrombocytopenia, unspecified; R79.89 Other specified abnormal findings of blood chemistry; I08.0 Rheumatic disorders of both mitral and aortic valves; K29.70 Gastritis, unspecified, without bleeding; R73.03 Prediabetes; L57.0 Actinic keratosis; L82.1 Other seborrheic keratosis; E55.9 Vitamin D deficiency, unspecified; F41.8 Other specified anxiety disorders; Z88.8 Allergy status to other drugs, medicaments and biological substances; Z79.1 Long term (current) use of non-steroidal anti-inflammatories (NSAID); Z79.82 Long term (current) use of aspirin; Z79.01 Long term (current) use of anticoagulants; Z79.899 Other long term (current) drug therapy; Z79.02 Long term (current) use of antithrombotics/antiplatelets; Z98.49 Cataract extraction status, unspecified eye; Z68.24 Body mass index [BMI] 24.0-24.9, adult; Z90.710 Acquired absence of both cervix and uterus; Z98.890 Other specified postprocedural states; Z95.1 Presence of aortocoronary bypass graft; Z95.2 Presence of prosthetic heart valve; Z86.19 Personal history of other infectious and parasitic diseases
CPT/HCPCS: 36415; 71045; 80048; 83735; 83880; 84484; 85025; 85610; 93005; 93010; 99223; 99232; 99233; 99238; A9270-GY; J1650; J1940

== ENCOUNTER 2024-07-24 12:16 | Inpatient (IN) | payer MEDICARE, BC ==
[2024-07-24 12:54] LABS: BASOPHILS PERCENT AUTO 0.1 % (0.0-1.0); EOSINOPHILS PERCENT AUTO 0.1 % (1.0-3.0); HEMATOCRIT 32.1 % (37.0-47.0); HEMOGLOBIN 9.8 g/dL (12.0-16.0); LYMPHOCYTES PERCENT AUTO 6.3 % (20.5-50.1); MEAN CORPUSCULAR HEMOGLOBIN 26.3 pg (27.0-34.0); MEAN CORPUSCULAR HGB CONC 30.5 g/dL (33.0-35.0); MEAN CORPUSCULAR VOLUME 86.3 fL (80-100); MONOCYTES PERCENT AUTO 5.4 % (2-8); NEUTROPHILS PERCENT AUTO 88.1 % (42.2-75.2); PLATELET COUNT,PLT 72 10^3/uL (150-450); RED BLOOD CELL COUNT 3.72 10^6/uL (4.2-5.4); WHITE BLOOD CELL COUNT,WBC 11.7 10^3/uL (5.0-10.0)
[2024-07-24 13:09] LABS: BLOOD UREA NITROGEN,BUN 24 mg/dL (7-18); CALCIUM 8.7 mg/dL (8.5-10.1); CARBON DIOXIDE,CO2 32 mmol/L (21-32); CREATININE 1.21 mg/dL (0.55-1.02); GLUCOSE RANDOM 174 mg/dL (70-99); MAGNESIUM 1.8 mg/dL (1.8-2.4)
[2024-07-24 13:15] LABS: ANION GAP 8.9 mEq/L (7-13); CHLORIDE,CL 95 mmol/L (98-107); ESTIMATED GFR 45 mL/min (>=60); POTASSIUM,K 2.9 mmol/L (3.5-5.1); SODIUM,NA 133 mmol/L (136-145)
[2024-07-24] MEDS: Potassium Chloride 10 MEQ Tab.ER PO ONE ×2 (13:56→17:17)
[2024-07-24] MEDS: Sodium Chloride 0.9% 500 ML IV SCH (13:56)
[2024-07-24 14:04] LABS: APPEARANCE,URINE SLIGHTLY CLOUDY (CLEAR); BILIRUBIN,URINE NEGATIVE (NEGATIVE); COLOR,URINE DARK YELLOW (YELLOW); GLUCOSE,URINE NEGATIVE (NEGATIVE); KETONES,URINE NEGATIVE (NEGATIVE); LEUKOCYTE ESTERASE,URINE TRACE (NEGATIVE); NITRITE,URINE NEGATIVE (NEGATIVE); OCCULT BLOOD,URINE NEGATIVE (NEGATIVE); PROTEIN,URINE 100 (NEGATIVE)
[2024-07-24 14:18] LABS: BACTERIA,URINE MODERATE /HPF (0-FEW/HPF); EPITHELIAL CELLS,URINE MANY /HPF (NOT SEEN); MUCUS,URINE FEW /LPF (NOT SEEN); RBC,URINE 0-5 /HPF (0-5)
[2024-07-24] MEDS: Piperacillin/Tazobactam 4.5 GM in Sodium Chloride 0.9% 100 ML IV ONE (14:30)
[2024-07-24] MEDS ORDERED: Acetaminophen 325 MG Tab PO PRN (14:55)
[2024-07-24] MEDS ORDERED: Melatonin 3 MG Tab PO PRN (14:55)
[2024-07-24] MEDS ORDERED: Sodium Chloride 0.9% 10 ML Syringe FLUSH PRN (14:55)
[2024-07-24] MEDS ORDERED: Albuterol/Ipratropium 3.0-0.5 MG/3 ML Neb Soln NEB PRN (14:55)
[2024-07-24] MEDS ORDERED: Sennosides/Docusate Sodium 50-8.6 MG Tab PO PRN (14:55)
[2024-07-24] MEDS ORDERED: Ondansetron 4 MG/2 ML SDV IVPUSH PRN (14:55)
[2024-07-24] MEDS ORDERED: Docusate Sodium 100 MG Cap PO PRN (14:55)
[2024-07-24] MEDS ORDERED: Polyethylene Glycol 3350 Powder 17 GM Packet PO PRN (14:55)
[2024-07-24] MEDS: VANCOmycin 1.25 GM in Sodium Chloride 0.9% 250 ML IV ONE (15:04)
[2024-07-24 16:48] LABS: INR 1.6 (0.9-1.2); PROTHROMBIN TIME 16.1 SEC (9.0-12.0)
[2024-07-24 16:54] LABS: PTT,PARTIAL THROMBOPLSTIN TIME 35.6 SEC (22.0-34.0)
[2024-07-24] MEDS: cefTRIAXone 1 GM Vial IVPUSH SCH (17:17)
[2024-07-24] MEDS: Gabapentin 100 MG Cap PO SCH (17:17)
[2024-07-24] MEDS: Magnesium Oxide 400 MG Tab PO SCH (17:17)
[2024-07-24] MEDS: rOPINIRole 0.25 MG Tab PO SCH (20:37)
[2024-07-24] MEDS: Latanoprost 0.005% Ophth Soln 2.5 ML Bottle EYERT SCH (20:37)
[2024-07-24] MEDS: Metoprolol Tartrate 25 MG Tab PO SCH (20:37)
[2024-07-24] MEDS: Carbidopa/Levodopa 25-250 MG Tab PO SCH (20:37)
[2024-07-24] MEDS: Rosuvastatin 10 MG Tab PO SCH (20:37)
[2024-07-24] MEDS: Timolol Maleate 0.5% Ophth Soln 5 ML Bottle EYERT SCH (20:38)
[2024-07-24] MEDS: Sodium Chloride 0.9% 10 ML Syringe FLUSH SCH (20:43)
[2024-07-24] MEDS ORDERED: rOPINIRole 0.25 MG Tab PO SCH (21:00)
[2024-07-25] MEDS: Omeprazole 20 MG Cap.CR PO SCH (05:04)
[2024-07-25 06:34] LABS: BASOPHILS PERCENT AUTO 0.2 % (0.0-1.0); EOSINOPHILS PERCENT AUTO 0.5 % (1.0-3.0); HEMATOCRIT 31.3 % (37.0-47.0); HEMOGLOBIN 9.5 g/dL (12.0-16.0); LYMPHOCYTES PERCENT AUTO 18.3 % (20.5-50.1); MEAN CORPUSCULAR HEMOGLOBIN 26.3 pg (27.0-34.0); MEAN CORPUSCULAR HGB CONC 30.4 g/dL (33.0-35.0); MEAN CORPUSCULAR VOLUME 86.7 fL (80-100); MONOCYTES PERCENT AUTO 12.6 % (2-8); NEUTROPHILS PERCENT AUTO 68.4 % (42.2-75.2); PLATELET COUNT,PLT 66 10^3/uL (150-450); RED BLOOD CELL COUNT 3.61 10^6/uL (4.2-5.4); WHITE BLOOD CELL COUNT,WBC 9.5 10^3/uL (5.0-10.0)
[2024-07-25 06:50] LABS: INR 1.5 (0.9-1.2); PROTHROMBIN TIME 15.4 SEC (9.0-12.0)
[2024-07-25 07:38] LABS: ALANINE AMINOTRANSFERASE,ALT 7 U/L (14-59); ALBUMIN 2.7 g/dL (3.4-5.0); ALKALINE PHOSPHATASE 110 U/L (46-116); ASPARTATE AMNIOTRANSFERASE,AST 25 U/L (15-37); BILIRUBIN TOTAL 1.7 mg/dL (0.2-1.0); BLOOD UREA NITROGEN,BUN 20 mg/dL (7-18); CALCIUM 8.9 mg/dL (8.5-10.1); CARBON DIOXIDE,CO2 30 mmol/L (21-32); CHLORIDE,CL 100 mmol/L (98-107); CREATININE 1.05 mg/dL (0.55-1.02); GLUCOSE RANDOM 119 mg/dL (70-99); PROTEIN TOTAL,TP 5.4 g/dL (6.4-8.2); SODIUM,NA 137 mmol/L (136-145)
[2024-07-25] MEDS: Enoxaparin 80 MG/0.8 ML Syringe SUBCUT SCH (07:43)
[2024-07-25 07:49] LABS: ESTIMATED GFR 54 mL/min (>=60); FOLIC ACID > 20.0 ng/mL (8.6-58.9)
[2024-07-25 07:58] LABS: HEMOGLOBIN A1C 5.2 % (<5.7)
[2024-07-25] MEDS: Spironolactone 25 MG Tab PO SCH (08:33)
[2024-07-25] MEDS: Aspirin 81 MG Tab.EC PO SCH (08:33)
[2024-07-25] MEDS: Furosemide 20 MG Tab PO SCH (08:34)
[2024-07-25] MEDS: Calcium Carbonate/Vitamin D3 1250 MG-5 MCG Tab PO SCH (08:34)
[2024-07-25] MEDS: Cholecalciferol (Vitamin D3) 25 MCG Tab PO SCH (08:34)
[2024-07-25] MEDS: Multivitamin Tab PO SCH (08:34)
[2024-07-25] MEDS: Cyanocobalamin (Vitamin B12) 1,000 MCG Tab PO SCH (08:34)
[2024-07-25] MEDS: DULoxetine 30 MG Cap PO SCH (08:34)
[2024-07-25] MEDS: Amiodarone 200 MG Tab PO SCH (08:35)
[2024-07-25] MEDS: Enoxaparin 60 MG/0.6 ML Syringe SUBCUT SCH (08:35)
[2024-07-25] MEDS: rOPINIRole 0.25 MG Tab PO SCH (09:59)
[2024-07-25] MEDS: [UNRECOGNIZED DRUG - OTHER] PO SCH (12:27)
[2024-07-25] MEDS: OMEGA PO SCH (12:27)
[2024-07-25] MEDS: FATTY ACIDS PO SCH (12:27)
[2024-07-25] MEDS: FISH OIL PO SCH (12:27)
[2024-07-25] MEDS: Warfarin 2.5 MG Tab PO ONE (13:26)
[2024-07-25] MEDS: Gabapentin 300 MG Cap PO SCH (13:27)
[2024-07-26 06:34] LABS: BASOPHILS PERCENT AUTO 0.1 % (0.0-1.0); EOSINOPHILS PERCENT AUTO 1.3 % (1.0-3.0); HEMATOCRIT 32.4 % (37.0-47.0); HEMOGLOBIN 10.1 g/dL (12.0-16.0); LYMPHOCYTES PERCENT AUTO 16.6 % (20.5-50.1); MEAN CORPUSCULAR HEMOGLOBIN 26.7 pg (27.0-34.0); MEAN CORPUSCULAR HGB CONC 31.2 g/dL (33.0-35.0); MEAN CORPUSCULAR VOLUME 85.7 fL (80-100); MONOCYTES PERCENT AUTO 10.4 % (2-8); NEUTROPHILS PERCENT AUTO 71.6 % (42.2-75.2); PLATELET COUNT,PLT 84 10^3/uL (150-450); RED BLOOD CELL COUNT 3.78 10^6/uL (4.2-5.4); WHITE BLOOD CELL COUNT,WBC 7.8 10^3/uL (5.0-10.0)
[2024-07-26 07:06] LABS: INR 1.6 (0.9-1.2); PTT,PARTIAL THROMBOPLSTIN TIME 35.4 SEC (22.0-34.0)
[2024-07-26 07:08] LABS: ALBUMIN 2.8 g/dL (3.4-5.0); ANION GAP 10.7 mEq/L (7-13); BILIRUBIN TOTAL 1.1 mg/dL (0.2-1.0); BUN/CREATININE RATIO 21.2 (No establ ref range); CALCIUM 8.9 mg/dL (8.5-10.1); CREATININE 1.04 mg/dL (0.55-1.02); EST CRCL DRUG DOSING (CG) 34.12 mL/min; MAGNESIUM 2.1 mg/dL (1.8-2.4); POTASSIUM,K 3.7 mmol/L (3.5-5.1); PROTEIN TOTAL,TP 5.7 g/dL (6.4-8.2)
[2024-07-26 07:18] LABS: A/G RATIO 0.97
[2024-07-26] MEDS: Warfarin** 1 MG TABLET PO ONE (14:21)
[2024-07-26] MEDS: Saccharomyces Boulardii (Probiotic) 250 MG Cap PO SCH (20:43)
[2024-07-26] MEDS ORDERED: LORazepam 0.5 MG Tab PO PRN (21:58)
[2024-07-27 06:33] LABS: BASOPHILS PERCENT AUTO 0.2 % (0.0-1.0); EOSINOPHILS PERCENT AUTO 0.8 % (1.0-3.0); HEMATOCRIT 33.2 % (37.0-47.0); HEMOGLOBIN 10.3 g/dL (12.0-16.0); LYMPHOCYTES PERCENT AUTO 24.2 % (20.5-50.1); MEAN CORPUSCULAR HEMOGLOBIN 26.3 pg (27.0-34.0); MEAN CORPUSCULAR VOLUME 84.9 fL (80-100); NEUTROPHILS PERCENT AUTO 61.8 % (42.2-75.2); PLATELET COUNT,PLT 84 10^3/uL (150-450); RED BLOOD CELL COUNT 3.91 10^6/uL (4.2-5.4); WHITE BLOOD CELL COUNT,WBC 6.5 10^3/uL (5.0-10.0)
[2024-07-27 07:01] LABS: ALBUMIN 2.9 g/dL (3.4-5.0); ANION GAP 10.9 mEq/L (7-13); BUN/CREATININE RATIO 21.6 (No establ ref range); CALCIUM 8.9 mg/dL (8.5-10.1); CREATININE 0.97 mg/dL (0.55-1.02); EST CRCL DRUG DOSING (CG) 36.58 mL/min; POTASSIUM,K 3.9 mmol/L (3.5-5.1); PROTEIN TOTAL,TP 5.6 g/dL (6.4-8.2)
[2024-07-27 07:07] LABS: A/G RATIO 1.07
[2024-07-27] MEDS: Ciprofloxacin in D5W 200 MG in Premix Bag 1 BAG IV ONE (12:34)
[2024-07-27] MEDS: Warfarin** 1 MG TABLET PO ONE (14:56)
[2024-07-28 06:48] LABS: INR 2.2 (0.9-1.2); PROTHROMBIN TIME 22.2 SEC (9.0-12.0)
[2024-07-28 07:00] LABS: BASOPHILS PERCENT AUTO 0.2 % (0.0-1.0); EOSINOPHILS PERCENT AUTO 0.9 % (1.0-3.0); HEMOGLOBIN 10.1 g/dL (12.0-16.0); MEAN CORPUSCULAR HEMOGLOBIN 26.6 pg (27.0-34.0); MEAN CORPUSCULAR HGB CONC 31.6 g/dL (33.0-35.0); MEAN CORPUSCULAR VOLUME 84.2 fL (80-100); MONOCYTES PERCENT AUTO 14.1 % (2-8); NEUTROPHILS PERCENT AUTO 60.8 % (42.2-75.2); PLATELET COUNT,PLT 115 10^3/uL (150-450); WHITE BLOOD CELL COUNT,WBC 6.5 10^3/uL (5.0-10.0)
[2024-07-28 07:19] LABS: ALBUMIN 2.6 g/dL (3.4-5.0); ANION GAP 10.6 mEq/L (7-13); BILIRUBIN TOTAL 1.1 mg/dL (0.2-1.0); BUN/CREATININE RATIO 21.2 (No establ ref range); CALCIUM 8.6 mg/dL (8.5-10.1); CREATININE 1.04 mg/dL (0.55-1.02); EST CRCL DRUG DOSING (CG) 34.12 mL/min; POTASSIUM,K 3.6 mmol/L (3.5-5.1); PROTEIN TOTAL,TP 5.4 g/dL (6.4-8.2)
[2024-07-28 07:23] LABS: A/G RATIO 0.93
[2024-07-28 07:39] VITALS: BP 130/63
[2024-07-28 08:32] VITALS: PULSE 72
[2024-07-28] MEDS: Ciprofloxacin in D5W 200 MG in Premix Bag 1 BAG IV SCH (09:21)
[2024-07-28] MEDS ORDERED: Warfarin 2 MG Tab PO ONE (21:00)
== END 2024-07-28 11:57 | disposition home or self-care (01) | DRG 689 ==
LOC: DL.ED 12:16 → DL.MS 14:26
PROVIDERS: ADMIT Internal Medicine; ATTEND Internal Medicine
DX: N39.0 Urinary tract infection, site not specified (principal); J18.9 Pneumonia, unspecified organism; I25.810 Atherosclerosis of coronary artery bypass graft(s) without angina pectoris; E87.1 Hypo-osmolality and hyponatremia; I48.92 Unspecified atrial flutter; I25.10 Atherosclerotic heart disease of native coronary artery without angina pectoris; E78.00 Pure hypercholesterolemia, unspecified; Z95.2 Presence of prosthetic heart valve; K21.9 Gastro-esophageal reflux disease without esophagitis; K29.70 Gastritis, unspecified, without bleeding; I13.10 Hypertensive heart and chronic kidney disease without heart failure, with stage 1 through stage 4 chronic kidney disease, or unspecified chronic kidney disease; Y95 Nosocomial condition; M81.0 Age-related osteoporosis without current pathological fracture; G20.A1 Parkinson's disease without dyskinesia, without mention of fluctuations; F41.9 Anxiety disorder, unspecified; F32.A Depression, unspecified; E66.01 Morbid (severe) obesity due to excess calories; E86.0 Dehydration; D72.829 Elevated white blood cell count, unspecified; D64.9 Anemia, unspecified; D69.6 Thrombocytopenia, unspecified; E87.6 Hypokalemia; E55.9 Vitamin D deficiency, unspecified; C44.91 Basal cell carcinoma of skin, unspecified; C80.1 Malignant (primary) neoplasm, unspecified; L82.1 Other seborrheic keratosis; E80.6 Other disorders of bilirubin metabolism; R73.03 Prediabetes; N18.30 Chronic kidney disease, stage 3 unspecified; B95.2 Enterococcus as the cause of diseases classified elsewhere; E66.9 Obesity, unspecified; M19.90 Unspecified osteoarthritis, unspecified site; Z98.890 Other specified postprocedural states; Z88.8 Allergy status to other drugs, medicaments and biological substances; Z68.26 Body mass index [BMI] 26.0-26.9, adult; Z79.82 Long term (current) use of aspirin; Z95.5 Presence of coronary angioplasty implant and graft; Z79.01 Long term (current) use of anticoagulants; Z79.899 Other long term (current) drug therapy; Z90.49 Acquired absence of other specified parts of digestive tract; Z90.710 Acquired absence of both cervix and uterus
CPT/HCPCS: 36415; 71045; 80048; 80053; 81001; 82607; 82746; 83036; 83735; 83880; 84132; 84443; 85025; 85610; 85730; 86140; 87040; 87077; 87086; 87088; 87186; 87428-QW; 87493; 93306; 94010; 97165-GO; 99285; A9270-GY; J0696; J0744; J1650; J2543; J3371; J3490; J7030

== ENCOUNTER 2024-08-15 15:08 | Inpatient (IN) | payer MEDICARE, BC ==
[2024-08-15] MEDS ORDERED: Metoprolol Tartrate 5 MG/5 ML SDV IVPUSH PRN (15:26)
[2024-08-15] MEDS ORDERED: hydrALAZINE 20 MG/ML SDV IVPUSH PRN (15:26)
[2024-08-15] MEDS ORDERED: Sennosides/Docusate Sodium 50-8.6 MG Tab PO PRN (15:35)
[2024-08-15] MEDS ORDERED: Magnesium Hydroxide 400 MG/5 ML Susp 30 ML Cup PO PRN (15:35)
[2024-08-15] MEDS ORDERED: Ondansetron 4 MG/2 ML SDV IVPUSH PRN (15:35)
[2024-08-15] MEDS ORDERED: Albuterol/Ipratropium 3.0-0.5 MG/3 ML Neb Soln NEB PRN (15:35)
[2024-08-15] MEDS ORDERED: Sodium Chloride 0.9% 10 ML Syringe FLUSH PRN (15:35)
[2024-08-15] MEDS ORDERED: Polyethylene Glycol 3350 Powder 17 GM Packet PO PRN (15:35)
[2024-08-15] MEDS ORDERED: Acetaminophen 325 MG Tab PO PRN ×2 (15:35→16:18)
[2024-08-15 16:12] LABS: BASOPHILS PERCENT AUTO 0.2 % (0.0-1.0); EOSINOPHILS PERCENT AUTO 0.6 % (1.0-3.0); HEMATOCRIT 38.1 % (37.0-47.0); HEMOGLOBIN 11.9 g/dL (12.0-16.0); LYMPHOCYTES PERCENT AUTO 16.3 % (20.5-50.1); MEAN CORPUSCULAR HEMOGLOBIN 24.8 pg (27.0-34.0); MEAN CORPUSCULAR HGB CONC 31.2 g/dL (33.0-35.0); MEAN CORPUSCULAR VOLUME 79.5 fL (80-100); MONOCYTES PERCENT AUTO 10.3 % (2-8); NEUTROPHILS PERCENT AUTO 72.6 % (42.2-75.2); PLATELET COUNT,PLT 69 10^3/uL (150-450); RED BLOOD CELL COUNT 4.79 10^6/uL (4.2-5.4); WHITE BLOOD CELL COUNT,WBC 8.2 10^3/uL (5.0-10.0)
[2024-08-15] MEDS ORDERED: LORazepam 0.5 MG Tab PO PRN (16:18)
[2024-08-15 16:24] LABS: ALBUMIN 3.1 g/dL (3.4-5.0); T4 FREE 1.13 ng/dL (0.76-1.46); TSH ULTRASENSITIVE 19.62 uIU/mL (0.36-3.74)
[2024-08-15 16:40] LABS: PROTHROMBIN TIME 29.3 SEC (9.0-12.0)
[2024-08-15] MEDS: Magnesium Oxide 400 MG Tab PO SCH (16:42)
[2024-08-15] MEDS: Carbidopa/Levodopa 25-250 MG Tab PO SCH (16:42)
[2024-08-15] MEDS: Gabapentin 300 MG Cap PO SCH (16:42)
[2024-08-15] MEDS: Furosemide 100 MG in Sodium Chloride 0.9% 90 ML IV SCH (16:42)
[2024-08-15] MEDS: rOPINIRole 0.25 MG Tab PO SCH (16:42)
[2024-08-15] MEDS: Albumin Human 25 GM in Premix Bag 1 BAG IV SCH (16:43)
[2024-08-15] MEDS: Latanoprost 0.005% Ophth Soln 2.5 ML Bottle EYERT SCH (20:44)
[2024-08-15] MEDS: Timolol Maleate 0.5% Ophth Soln 5 ML Bottle EYERT SCH (20:45)
[2024-08-15] MEDS: Metoprolol Tartrate 25 MG Tab PO SCH (20:55)
[2024-08-15] MEDS: Sodium Chloride 0.9% 10 ML Syringe FLUSH SCH (20:55)
[2024-08-16 06:24] LABS: BASOPHILS PERCENT AUTO 0.2 % (0.0-1.0); EOSINOPHILS PERCENT AUTO 0.6 % (1.0-3.0); HEMATOCRIT 30.2 % (37.0-47.0); HEMOGLOBIN 9.1 g/dL (12.0-16.0); LYMPHOCYTES PERCENT AUTO 19.1 % (20.5-50.1); MEAN CORPUSCULAR HGB CONC 30.1 g/dL (33.0-35.0); MEAN CORPUSCULAR VOLUME 79.7 fL (80-100); MONOCYTES PERCENT AUTO 9.8 % (2-8); NEUTROPHILS PERCENT AUTO 70.3 % (42.2-75.2); PLATELET COUNT,PLT 48 10^3/uL (150-450); RED BLOOD CELL COUNT 3.79 10^6/uL (4.2-5.4); WHITE BLOOD CELL COUNT,WBC 6.2 10^3/uL (5.0-10.0)
[2024-08-16 06:44] LABS: INR 2.7 (0.9-1.2); PROTHROMBIN TIME 26.3 SEC (9.0-12.0)
[2024-08-16 07:21] LABS: A/G RATIO 1.9; ALBUMIN 3.9 g/dL (3.4-5.0); ANION GAP 16.1 mEq/L (7-13); BILIRUBIN TOTAL 1.7 mg/dL (0.2-1.0); BUN/CREATININE RATIO 16.9 (No establ ref range); CREATININE 2.07 mg/dL (0.55-1.02); EST CRCL DRUG DOSING (CG) 17.14 mL/min; MAGNESIUM 1.8 mg/dL (1.8-2.4); POTASSIUM,K 4.1 mmol/L (3.5-5.1)
[2024-08-16] MEDS: Amiodarone 200 MG Tab PO SCH (09:32)
[2024-08-16] MEDS: DULoxetine 30 MG Cap PO SCH (09:32)
[2024-08-16] MEDS: Cholecalciferol (Vitamin D3) 25 MCG Tab PO SCH (09:32)
[2024-08-16] MEDS: Omeprazole 20 MG Cap.CR PO SCH (09:32)
[2024-08-16] MEDS: Cyanocobalamin (Vitamin B12) 1,000 MCG Tab PO SCH (09:32)
[2024-08-16] MEDS: Multivitamins with Iron/Calcium/Folic Acid/Minerals Tab PO SCH (09:32)
[2024-08-16] MEDS: Spironolactone 25 MG Tab PO SCH (09:33)
[2024-08-16] MEDS: Calcium Carbonate/Vitamin D3 1250 MG-5 MCG Tab PO SCH (09:33)
[2024-08-16] MEDS: Warfarin 2.5 MG Tab PO SCH (13:05)
[2024-08-16] MEDS: Furosemide 100 MG in Sodium Chloride 0.9% 90 ML IV SCH (18:27)
[2024-08-16] MEDS: Furosemide 40 MG/4 ML VIAL IVPUSH ONE (18:28)
[2024-08-16] MEDS: Magnesium Sulf/Wat 2 GM/50 mL 2 GM in Premix Bag 1 BAG IV ONE (18:28)
[2024-08-17 07:01] LABS: HEMATOCRIT 31.9 % (37.0-47.0); HEMOGLOBIN 10.1 g/dL (12.0-16.0); MEAN CORPUSCULAR HEMOGLOBIN 25.4 pg (27.0-34.0); MEAN CORPUSCULAR HGB CONC 31.7 g/dL (33.0-35.0); MEAN CORPUSCULAR VOLUME 80.2 fL (80-100); PLATELET COUNT,PLT 61 10^3/uL (150-450); RED BLOOD CELL COUNT 3.98 10^6/uL (4.2-5.4); WHITE BLOOD CELL COUNT,WBC 7.2 10^3/uL (5.0-10.0)
[2024-08-17 07:16] LABS: ANION GAP 12.5 mEq/L (7-13); CALCIUM 9.2 mg/dL (8.5-10.1); CREATININE 1.84 mg/dL (0.55-1.02); EST CRCL DRUG DOSING (CG) 19.29 mL/min; POTASSIUM,K 3.5 mmol/L (3.5-5.1)
[2024-08-17 07:31] LABS: INR 2.1 (0.9-1.2); PROTHROMBIN TIME 21.2 SEC (9.0-12.0)
[2024-08-17 08:16] LABS: EOSINOPHILS PERCENT MAN 2 % (1-3); LYMPHOCYTES PERCENT MAN 9 % (20-50); MONOCYTES PERCENT MAN 7 % (2-8); SEG NEUTROPHILS PERCENT MAN 82 % (42-75)
[2024-08-17 08:17] LABS: ANISOCYTOSIS 1+ SLIGHT; HYPOCHROMASIA 1+ SLIGHT; TARGET CELLS 1+ SLIGHT; TOXIC GRANULATION 1+ SLIGHT
[2024-08-17 08:18] LABS: PLATELET COUNT ESTIMATE MARKED DEC
[2024-08-17] MEDS: Furosemide 40 MG/4 ML VIAL IVPUSH ONE (09:48)
[2024-08-17] MEDS: Potassium Chloride 10 MEQ Tab.ER PO SCH (17:07)
[2024-08-18 06:55] LABS: INR 1.8 (0.9-1.2); PROTHROMBIN TIME 18.5 SEC (9.0-12.0)
[2024-08-18 07:00] LABS: ANION GAP 10.9 mEq/L (7-13); CALCIUM 9.2 mg/dL (8.5-10.1); CREATININE 1.77 mg/dL (0.55-1.02); EST CRCL DRUG DOSING (CG) 20.05 mL/min; MAGNESIUM 1.9 mg/dL (1.8-2.4); POTASSIUM,K 3.9 mmol/L (3.5-5.1)
[2024-08-18 08:24] VITALS: BP 113/58; PULSE 72
[2024-08-18] MEDS ORDERED: Warfarin** 1 MG TABLET PO ONE (14:00)
== END 2024-08-18 11:10 | disposition home or self-care (01) | DRG 291 ==
LOC: DL.MS 15:08
PROVIDERS: ADMIT Internal Medicine; ATTEND Internal Medicine
DX: I13.0 Hypertensive heart and chronic kidney disease with heart failure and stage 1 through stage 4 chronic kidney disease, or unspecified chronic kidney disease (principal); I50.23 Acute on chronic systolic (congestive) heart failure; I50.33 Acute on chronic diastolic (congestive) heart failure; I48.92 Unspecified atrial flutter; N17.9 Acute kidney failure, unspecified; Z66 Do not resuscitate; Z68.28 Body mass index [BMI] 28.0-28.9, adult; E78.5 Hyperlipidemia, unspecified; I25.10 Atherosclerotic heart disease of native coronary artery without angina pectoris; I27.20 Pulmonary hypertension, unspecified; J42 Unspecified chronic bronchitis; K21.9 Gastro-esophageal reflux disease without esophagitis; N18.30 Chronic kidney disease, stage 3 unspecified; E55.9 Vitamin D deficiency, unspecified; M81.0 Age-related osteoporosis without current pathological fracture; M19.90 Unspecified osteoarthritis, unspecified site; G20.A1 Parkinson's disease without dyskinesia, without mention of fluctuations; F41.0 Panic disorder [episodic paroxysmal anxiety]; E66.9 Obesity, unspecified; F32.A Depression, unspecified; Z88.8 Allergy status to other drugs, medicaments and biological substances; Z79.899 Other long term (current) drug therapy; Z79.01 Long term (current) use of anticoagulants; Z85.828 Personal history of other malignant neoplasm of skin; Z95.5 Presence of coronary angioplasty implant and graft; Z85.72 Personal history of non-Hodgkin lymphomas; Z98.49 Cataract extraction status, unspecified eye; Z95.2 Presence of prosthetic heart valve; Z90.49 Acquired absence of other specified parts of digestive tract; Z90.710 Acquired absence of both cervix and uterus
CPT/HCPCS: 36415; 51702; 80048; 80053; 82040; 83735; 84439; 84443; 85007; 85025; 85027; 85610; 99223; 99232; 99233; 99239; A9270-GY; J1940; J3475; P9047

== ENCOUNTER 2024-08-27 12:26 | Emergency (ER) | payer MEDICARE, BC ==
[2024-08-27 13:32] LABS: HEMATOCRIT 34.2 % (37.0-47.0); HEMOGLOBIN 10.6 g/dL (12.0-16.0); MEAN CORPUSCULAR HEMOGLOBIN 24.3 pg (27.0-34.0); MEAN CORPUSCULAR VOLUME 78.4 fL (80-100); PLATELET COUNT,PLT 106 10^3/uL (150-450); RED BLOOD CELL COUNT 4.36 10^6/uL (4.2-5.4); WHITE BLOOD CELL COUNT,WBC 10.3 10^3/uL (5.0-10.0)
[2024-08-27 13:40] LABS: BASOPHILS PERCENT AUTO 0.1 % (0.0-1.0); EOSINOPHILS PERCENT AUTO 0.1 % (1.0-3.0); LYMPHOCYTES PERCENT AUTO 10.7 % (20.5-50.1); MONOCYTES PERCENT AUTO 8.4 % (2-8); NEUTROPHILS PERCENT AUTO 80.7 % (42.2-75.2)
[2024-08-27 13:53] LABS: A/G RATIO 1.1; ALANINE AMINOTRANSFERASE,ALT 11 U/L (14-59); ALBUMIN 3.4 g/dL (3.4-5.0); ALKALINE PHOSPHATASE 211 U/L (46-116); ANION GAP 15.4 mEq/L (7-13); ASPARTATE AMNIOTRANSFERASE,AST 25 U/L (15-37); BLOOD UREA NITROGEN,BUN 37 mg/dL (7-18); BUN/CREATININE RATIO 18.8 (No establ ref range); CALCIUM 9.5 mg/dL (8.5-10.1); CARBON DIOXIDE,CO2 28 mmol/L (21-32); CHLORIDE,CL 98 mmol/L (98-107); CREATININE 1.97 mg/dL (0.55-1.02); GLUCOSE RANDOM 125 mg/dL (70-99); PROTEIN TOTAL,TP 6.5 g/dL (6.4-8.2); PROTHROMBIN TIME 69.4 SEC (9.0-12.0); SODIUM,NA 136 mmol/L (136-145)
[2024-08-27 13:54] LABS: LYMPHOCYTES PERCENT MAN 12 % (20-50); MONOCYTES PERCENT MAN 8 % (2-8); SEG NEUTROPHILS PERCENT MAN 80 % (42-75)
[2024-08-27 13:56] LABS: ESTIMATED GFR 25 mL/min (>=60)
[2024-08-27 13:57] LABS: POTASSIUM,K 5.4 mmol/L (3.5-5.1)
[2024-08-27 13:59] LABS: INR 7.7 (0.9-1.2)
[2024-08-27 15:00] VITALS: BP 131/116; PULSE 59
== END 2024-08-27 14:52 | disposition home or self-care (01) ==
LOC: DL.ED 12:26
DX: R79.1 Abnormal coagulation profile (principal); I25.10 Atherosclerotic heart disease of native coronary artery without angina pectoris; E78.00 Pure hypercholesterolemia, unspecified; K21.9 Gastro-esophageal reflux disease without esophagitis; M19.90 Unspecified osteoarthritis, unspecified site; E66.9 Obesity, unspecified; Z95.2 Presence of prosthetic heart valve; Z90.49 Acquired absence of other specified parts of digestive tract; Z90.710 Acquired absence of both cervix and uterus; Z88.8 Allergy status to other drugs, medicaments and biological substances; Z79.82 Long term (current) use of aspirin; Z79.01 Long term (current) use of anticoagulants; Z79.899 Other long term (current) drug therapy
CPT/HCPCS: 36415; 80053; 85025; 85610; 99283

== ENCOUNTER 2024-09-04 05:17 | Inpatient (IN) | payer MEDICARE, BC ==
[2024-09-04 05:43] LABS: BASOPHILS PERCENT AUTO 0.1 % (0.0-1.0); EOSINOPHILS PERCENT AUTO 0.1 % (1.0-3.0); HEMATOCRIT 32.2 % (37.0-47.0); HEMOGLOBIN 10.2 g/dL (12.0-16.0); MEAN CORPUSCULAR HEMOGLOBIN 23.5 pg (27.0-34.0); MEAN CORPUSCULAR HGB CONC 31.7 g/dL (33.0-35.0); MEAN CORPUSCULAR VOLUME 74.2 fL (80-100); MONOCYTES PERCENT AUTO 7.6 % (2-8); NEUTROPHILS PERCENT AUTO 82.2 % (42.2-75.2); PLATELET COUNT,PLT 83 10^3/uL (150-450); RED BLOOD CELL COUNT 4.34 10^6/uL (4.2-5.4); WHITE BLOOD CELL COUNT,WBC 11.3 10^3/uL (5.0-10.0)
[2024-09-04 05:49] LABS: B-TYPE NATRIURETIC PEPTIDE,BNP 350 pg/ml (0-100)
[2024-09-04 05:51] LABS: INR 2.8 (0.9-1.2); PROTHROMBIN TIME 27.4 SEC (9.0-12.0)
[2024-09-04 05:53] LABS: ALANINE AMINOTRANSFERASE,ALT 12 U/L (14-59); ALBUMIN 3.2 g/dL (3.4-5.0); ALKALINE PHOSPHATASE 225 U/L (46-116); ANION GAP 16.4 mEq/L (7-13); ASPARTATE AMNIOTRANSFERASE,AST 32 U/L (15-37); BILIRUBIN TOTAL 2.3 mg/dL (0.2-1.0); BLOOD UREA NITROGEN,BUN 42 mg/dL (7-18); BUN/CREATININE RATIO 20.1 (No establ ref range); CALCIUM 9.3 mg/dL (8.5-10.1); CARBON DIOXIDE,CO2 24 mmol/L (21-32); CHLORIDE,CL 95 mmol/L (98-107); CREATININE 2.09 mg/dL (0.55-1.02); GLUCOSE RANDOM 115 mg/dL (70-99); LIPASE 27 U/L (16-77); MAGNESIUM 2.2 mg/dL (1.8-2.4); SODIUM,NA 130 mmol/L (136-145)
[2024-09-04 05:54] LABS: A/G RATIO 1.14; ESTIMATED GFR 24 mL/min (>=60)
[2024-09-04 05:55] LABS: POTASSIUM,K 5.4 mmol/L (3.5-5.1)
[2024-09-04] MEDS: Sodium Chloride 0.9% 500 ML IV SCH (07:14)
[2024-09-04 07:34] LABS: APPEARANCE,URINE CLEAR (CLEAR); BILIRUBIN,URINE NEGATIVE (NEGATIVE); COLOR,URINE YELLOW (YELLOW); GLUCOSE,URINE NEGATIVE (NEGATIVE); KETONES,URINE NEGATIVE (NEGATIVE); LEUKOCYTE ESTERASE,URINE TRACE (NEGATIVE); NITRITE,URINE NEGATIVE (NEGATIVE); OCCULT BLOOD,URINE TRACE-INTACT (NEGATIVE); PROTEIN,URINE >=300 (NEGATIVE); UROBILINOGEN,URINE 0.2 mg/dL (0.2-1.0)
[2024-09-04 07:43] LABS: AMORPHOUS SEDIMENT,URINE FEW /HPF (NOT SEEN); BACTERIA,URINE MANY /HPF (0-FEW/HPF); EPITHELIAL CELLS,URINE FEW /HPF (NOT SEEN); MUCUS,URINE RARE /LPF (NOT SEEN)
[2024-09-04] MEDS: cefTRIAXone 1 GM Vial IVPUSH ONE (08:01)
[2024-09-04] MEDS ORDERED: Sodium Chloride 0.9% 10 ML Syringe FLUSH PRN (09:45)
[2024-09-04] MEDS ORDERED: Docusate Sodium 100 MG Cap PO PRN (09:45)
[2024-09-04] MEDS ORDERED: Polyethylene Glycol 3350 Powder 17 GM Packet PO PRN (09:45)
[2024-09-04] MEDS ORDERED: Sennosides/Docusate Sodium 50-8.6 MG Tab PO PRN (09:45)
[2024-09-04] MEDS: Furosemide 40 MG Tab PO SCH (11:08)
[2024-09-04] MEDS: Albuterol/Ipratropium 3.0-0.5 MG/3 ML Neb Soln NEB SCH ×2 (11:08→16:21)
[2024-09-04] MEDS: Spironolactone 25 MG Tab PO SCH (11:47)
[2024-09-04] MEDS: Amiodarone 200 MG Tab PO SCH (11:47)
[2024-09-04] MEDS: Omeprazole 20 MG Cap.CR PO SCH (11:47)
[2024-09-04] MEDS: Metoprolol Tartrate 25 MG Tab PO SCH (11:47)
[2024-09-04] MEDS: Metolazone 2.5 MG Tab PO ONE (11:47)
[2024-09-04] MEDS: guaiFENesin 600 MG Tab.ER PO SCH (11:48)
[2024-09-04] MEDS: Aspirin 81 MG Tab.EC PO SCH (11:48)
[2024-09-04] MEDS: Timolol Maleate 0.5% Ophth Soln 5 ML Bottle EYERT SCH (11:48)
[2024-09-04] MEDS: Azithromycin 500 MG in Sodium Chloride 0.9% 250 ML IV SCH (11:48)
[2024-09-04] MEDS: cefTRIAXone 1 GM Vial IVPUSH SCH (12:04)
[2024-09-04] MEDS: Ondansetron 4 MG/2 ML SDV IVPUSH PRN (13:11)
[2024-09-04 14:17] LABS: POTASSIUM,K 5.2 mmol/L (3.5-5.1)
[2024-09-04] MEDS ORDERED: Albuterol/Ipratropium 3.0-0.5 MG/3 ML Neb Soln NEB PRN (14:42)
[2024-09-04] MEDS: Furosemide 40 MG/4 ML VIAL IVPUSH ONE (14:49)
[2024-09-04] MEDS: rOPINIRole 0.25 MG Tab PO SCH (14:49)
[2024-09-04] MEDS: Carbidopa/Levodopa 25-250 MG Tab PO SCH (14:49)
[2024-09-04 17:26] LABS: PERCENT FE SATURATION 4.1 % (20.0-50.0)
[2024-09-04] MEDS: Magnesium Oxide 400 MG Tab PO SCH (17:31)
[2024-09-04] MEDS ORDERED: Formoterol/Mometasone 200-5 MCG 8.8 GM Inhaler INH SCH (18:00)
[2024-09-04] MEDS: cefTRIAXone 1 GM Vial IV ONE (21:18)
[2024-09-04] MEDS: Warfarin 2.5 MG Tab PO SCH (21:18)
[2024-09-04] MEDS: Rosuvastatin 10 MG Tab PO SCH (21:18)
[2024-09-04] MEDS: Sodium Chloride 0.9% 10 ML Syringe FLUSH SCH (21:20)
[2024-09-04] MEDS: Latanoprost 0.005% Ophth Soln 2.5 ML Bottle EYERT SCH (21:21)
[2024-09-05 07:07] LABS: INR 2.5 (0.9-1.2); PROTHROMBIN TIME 24.9 SEC (9.0-12.0); PTT,PARTIAL THROMBOPLSTIN TIME 40.3 SEC (22.0-34.0)
[2024-09-05 07:14] LABS: BASOPHILS PERCENT AUTO 0.1 % (0.0-1.0); EOSINOPHILS PERCENT AUTO 0.2 % (1.0-3.0); HEMATOCRIT 29.3 % (37.0-47.0); HEMOGLOBIN 9.2 g/dL (12.0-16.0); LYMPHOCYTES PERCENT AUTO 14.9 % (20.5-50.1); MEAN CORPUSCULAR HEMOGLOBIN 23.4 pg (27.0-34.0); MEAN CORPUSCULAR HGB CONC 31.4 g/dL (33.0-35.0); MEAN CORPUSCULAR VOLUME 74.6 fL (80-100); MONOCYTES PERCENT AUTO 11.7 % (2-8); NEUTROPHILS PERCENT AUTO 73.1 % (42.2-75.2); PLATELET COUNT,PLT 58 10^3/uL (150-450); RED BLOOD CELL COUNT 3.93 10^6/uL (4.2-5.4); WHITE BLOOD CELL COUNT,WBC 10.4 10^3/uL (5.0-10.0)
[2024-09-05 07:59] LABS: ALBUMIN 2.8 g/dL (3.4-5.0); BILIRUBIN TOTAL 1.5 mg/dL (0.2-1.0); BUN/CREATININE RATIO 23.4 (No establ ref range); CALCIUM 9.2 mg/dL (8.5-10.1); CREATININE 1.92 mg/dL (0.55-1.02); EST CRCL DRUG DOSING (CG) 18.48 mL/min; FOLIC ACID 18.1 ng/mL (8.6-58.9); MAGNESIUM 2.1 mg/dL (1.8-2.4); PROTEIN TOTAL,TP 5.7 g/dL (6.4-8.2); TSH ULTRASENSITIVE 7.18 uIU/mL (0.36-3.74)
[2024-09-05 08:11] LABS: A/G RATIO 0.97; ANION GAP 17.8 mEq/L (7-13); POTASSIUM,K 4.8 mmol/L (3.5-5.1)
[2024-09-05] MEDS: Cholecalciferol (Vitamin D3) 25 MCG Tab PO SCH (09:10)
[2024-09-05] MEDS: cefTRIAXone 1 GM Vial IVPUSH SCH (09:10)
[2024-09-05] MEDS: Ferrous Sulfate 325 MG Tab PO SCH ×2 (09:10→21:28)
[2024-09-05] MEDS: Cyanocobalamin (Vitamin B12) 1,000 MCG Tab PO SCH (09:11)
[2024-09-05] MEDS: Multivitamin Tab PO SCH (09:11)
[2024-09-05] MEDS: Empagliflozin 10 MG Tab PO SCH (09:11)
[2024-09-05] MEDS: Metolazone 2.5 MG Tab PO ONE (09:11)
[2024-09-05] MEDS: Levothyroxine 25 MCG Tab PO ONE (10:32)
[2024-09-05] MEDS: Gabapentin 100 MG Cap PO SCH ×2 (11:23→21:28)
[2024-09-05] MEDS: Acetaminophen 325 MG Tab PO PRN (11:23)
[2024-09-05] MEDS: Furosemide 40 MG/4 ML VIAL IVPUSH ONE (13:37)
[2024-09-05] MEDS: Nystatin Topical Powder 60 GM Bottle TOP SCH (14:07)
[2024-09-06] MEDS: Levothyroxine 25 MCG Tab PO SCH (05:23)
[2024-09-06 06:40] LABS: BASOPHILS PERCENT AUTO 0.1 % (0.0-1.0); EOSINOPHILS PERCENT AUTO 0.1 % (1.0-3.0); HEMATOCRIT 33.1 % (37.0-47.0); HEMOGLOBIN 10.3 g/dL (12.0-16.0); LYMPHOCYTES PERCENT AUTO 7.8 % (20.5-50.1); MEAN CORPUSCULAR HGB CONC 31.1 g/dL (33.0-35.0); MONOCYTES PERCENT AUTO 6.9 % (2-8); NEUTROPHILS PERCENT AUTO 85.1 % (42.2-75.2); PLATELET COUNT,PLT 69 10^3/uL (150-450); RED BLOOD CELL COUNT 4.47 10^6/uL (4.2-5.4)
[2024-09-06 06:59] LABS: INR 2.7 (0.9-1.2); PROTHROMBIN TIME 25.9 SEC (9.0-12.0); PTT,PARTIAL THROMBOPLSTIN TIME 36.8 SEC (22.0-34.0)
[2024-09-06 07:03] LABS: BILIRUBIN TOTAL 1.2 mg/dL (0.2-1.0); BUN/CREATININE RATIO 20.4 (No establ ref range); CALCIUM 9.3 mg/dL (8.5-10.1); CREATININE 2.01 mg/dL (0.55-1.02); EST CRCL DRUG DOSING (CG) 17.66 mL/min; MAGNESIUM 2.1 mg/dL (1.8-2.4)
[2024-09-06 07:19] LABS: ANION GAP 15.9 mEq/L (7-13); POTASSIUM,K 3.9 mmol/L (3.5-5.1)
[2024-09-06] MEDS: Bumetanide 1 MG/4 ML MDV IVPUSH ONE ×2 (13:19→16:25)
[2024-09-06] MEDS: Bumetanide 1 MG/4 ML MDV ONE (15:32)
[2024-09-06] MEDS: Melatonin 3 MG Tab PO PRN (22:57)
[2024-09-06] MEDS: Acetaminophen 500 MG Tab PO PRN (22:57)
[2024-09-07 06:39] LABS: MEAN CORPUSCULAR HEMOGLOBIN 23.1 pg (27.0-34.0); MEAN CORPUSCULAR HGB CONC 31.3 g/dL (33.0-35.0); MEAN CORPUSCULAR VOLUME 73.9 fL (80-100); PLATELET COUNT,PLT 65 10^3/uL (150-450); RED BLOOD CELL COUNT 4.33 10^6/uL (4.2-5.4); WHITE BLOOD CELL COUNT,WBC 12.4 10^3/uL (5.0-10.0)
[2024-09-07 06:41] LABS: BASOPHILS PERCENT AUTO 0.1 % (0.0-1.0); EOSINOPHILS PERCENT AUTO 0.3 % (1.0-3.0); LYMPHOCYTES PERCENT AUTO 12.8 % (20.5-50.1); MONOCYTES PERCENT AUTO 7.8 % (2-8)
[2024-09-07 06:58] LABS: BILIRUBIN TOTAL 1.5 mg/dL (0.2-1.0); BUN/CREATININE RATIO 18.9 (No establ ref range); CALCIUM 9.1 mg/dL (8.5-10.1); CREATININE 1.96 mg/dL (0.55-1.02); EST CRCL DRUG DOSING (CG) 18.11 mL/min; MAGNESIUM 2.1 mg/dL (1.8-2.4); POTASSIUM,K 3.3 mmol/L (3.5-5.1); PROTEIN TOTAL,TP 5.8 g/dL (6.4-8.2)
[2024-09-07 07:07] LABS: ANION GAP 9.3 mEq/L (7-13); INR 3.2 (0.9-1.2); PROTHROMBIN TIME 31.1 SEC (9.0-12.0); PTT,PARTIAL THROMBOPLSTIN TIME 40.1 SEC (22.0-34.0)
[2024-09-07 07:23] LABS: A/G RATIO 1.07
[2024-09-07] MEDS: Potassium Chloride 10 MEQ Tab.ER PO SCH (07:45)
[2024-09-07 08:06] LABS: LYMPHOCYTES PERCENT MAN 16 % (20-50); MONOCYTES PERCENT MAN 4 % (2-8)
[2024-09-07 08:07] LABS: SEG NEUTROPHILS PERCENT MAN 80 % (42-75)
[2024-09-07] MEDS: Bumetanide 1 MG/4 ML MDV IVPUSH ONE (14:41)
[2024-09-07] MEDS: Gabapentin 300 MG Cap PO SCH (20:56)
[2024-09-08 06:51] LABS: EOSINOPHILS PERCENT AUTO 0.4 % (1.0-3.0); HEMATOCRIT 33.2 % (37.0-47.0); HEMOGLOBIN 10.1 g/dL (12.0-16.0); LYMPHOCYTES PERCENT AUTO 8.7 % (20.5-50.1); MEAN CORPUSCULAR HEMOGLOBIN 22.6 pg (27.0-34.0); MEAN CORPUSCULAR HGB CONC 30.4 g/dL (33.0-35.0); MEAN CORPUSCULAR VOLUME 74.3 fL (80-100); MONOCYTES PERCENT AUTO 6.1 % (2-8); NEUTROPHILS PERCENT AUTO 84.7 % (42.2-75.2); PLATELET COUNT,PLT 75 10^3/uL (150-450); RED BLOOD CELL COUNT 4.47 10^6/uL (4.2-5.4); WHITE BLOOD CELL COUNT,WBC 11.9 10^3/uL (5.0-10.0)
[2024-09-08 06:59] LABS: BASOPHILS PERCENT AUTO 0.1 % (0.0-1.0)
[2024-09-08 07:01] LABS: INR 2.8 (0.9-1.2); PROTHROMBIN TIME 27.3 SEC (9.0-12.0); PTT,PARTIAL THROMBOPLSTIN TIME 39.5 SEC (22.0-34.0)
[2024-09-08 07:10] LABS: ANION GAP 10.6 mEq/L (7-13); BILIRUBIN TOTAL 1.4 mg/dL (0.2-1.0); BUN/CREATININE RATIO 18.9 (No establ ref range); CALCIUM 9.4 mg/dL (8.5-10.1); CREATININE 2.12 mg/dL (0.55-1.02); EST CRCL DRUG DOSING (CG) 16.74 mL/min; POTASSIUM,K 3.6 mmol/L (3.5-5.1); PROTEIN TOTAL,TP 6.1 g/dL (6.4-8.2)
[2024-09-08 07:20] LABS: A/G RATIO 0.97
[2024-09-08] MEDS: Potassium Chloride 10 MEQ Tab.ER PO SCH (07:31)
[2024-09-08] MEDS: Warfarin** 1 MG TABLET PO ONE (21:00)
[2024-09-09 06:30] LABS: HEMATOCRIT 30.4 % (37.0-47.0); HEMOGLOBIN 9.3 g/dL (12.0-16.0); MEAN CORPUSCULAR HEMOGLOBIN 23.1 pg (27.0-34.0); MEAN CORPUSCULAR HGB CONC 30.6 g/dL (33.0-35.0); MEAN CORPUSCULAR VOLUME 75.4 fL (80-100); PLATELET COUNT,PLT 62 10^3/uL (150-450); RED BLOOD CELL COUNT 4.03 10^6/uL (4.2-5.4); WHITE BLOOD CELL COUNT,WBC 10.1 10^3/uL (5.0-10.0)
[2024-09-09 06:36] LABS: BASOPHILS PERCENT AUTO 0.1 % (0.0-1.0); EOSINOPHILS PERCENT AUTO 0.8 % (1.0-3.0); LYMPHOCYTES PERCENT AUTO 10.9 % (20.5-50.1); NEUTROPHILS PERCENT AUTO 78.2 % (42.2-75.2)
[2024-09-09 06:44] LABS: INR 2.2 (0.9-1.2); PROTHROMBIN TIME 21.8 SEC (9.0-12.0); PTT,PARTIAL THROMBOPLSTIN TIME 38.1 SEC (22.0-34.0)
[2024-09-09 06:49] LABS: ALBUMIN 2.8 g/dL (3.4-5.0); ANION GAP 5.8 mEq/L (7-13); BILIRUBIN TOTAL 1.4 mg/dL (0.2-1.0); BUN/CREATININE RATIO 22.7 (No establ ref range); CALCIUM 9.2 mg/dL (8.5-10.1); CREATININE 1.72 mg/dL (0.55-1.02); EST CRCL DRUG DOSING (CG) 20.63 mL/min; MAGNESIUM 2.1 mg/dL (1.8-2.4); POTASSIUM,K 3.8 mmol/L (3.5-5.1); PROTEIN TOTAL,TP 5.6 g/dL (6.4-8.2)
[2024-09-09 06:55] LABS: LYMPHOCYTES PERCENT MAN 8 % (20-50); MONOCYTES PERCENT MAN 13 % (2-8); SEG NEUTROPHILS PERCENT MAN 79 % (42-75)
[2024-09-09] MEDS: Potassium Chloride 10 MEQ Tab.ER PO ONE (13:15)
[2024-09-09] MEDS: Bumetanide 1 MG/4 ML MDV IVPUSH ONE (13:20)
[2024-09-09] MEDS ORDERED: Warfarin** 1 MG TABLET PO ONE (20:00)
[2024-09-09] MEDS: Gabapentin 100 MG Cap PO SCH (20:23)
[2024-09-09] MEDS: Apixaban 5 MG Tab PO SCH (20:23)
[2024-09-10 06:10] LABS: BASOPHILS PERCENT AUTO 0.1 % (0.0-1.0); EOSINOPHILS PERCENT AUTO 0.6 % (1.0-3.0); HEMATOCRIT 31.2 % (37.0-47.0); HEMOGLOBIN 9.5 g/dL (12.0-16.0); LYMPHOCYTES PERCENT AUTO 13.2 % (20.5-50.1); MEAN CORPUSCULAR HEMOGLOBIN 22.9 pg (27.0-34.0); MEAN CORPUSCULAR HGB CONC 30.4 g/dL (33.0-35.0); MEAN CORPUSCULAR VOLUME 75.4 fL (80-100); MONOCYTES PERCENT AUTO 9.3 % (2-8); NEUTROPHILS PERCENT AUTO 76.8 % (42.2-75.2); PLATELET COUNT,PLT 85 10^3/uL (150-450); RED BLOOD CELL COUNT 4.14 10^6/uL (4.2-5.4); WHITE BLOOD CELL COUNT,WBC 10.4 10^3/uL (5.0-10.0)
[2024-09-10 06:29] LABS: INR 1.9 (0.9-1.2); PROTHROMBIN TIME 18.9 SEC (9.0-12.0)
[2024-09-10 06:32] LABS: ANION GAP 11.7 mEq/L (7-13); BILIRUBIN TOTAL 1.7 mg/dL (0.2-1.0); BUN/CREATININE RATIO 25.9 (No establ ref range); CALCIUM 9.2 mg/dL (8.5-10.1); CREATININE 1.62 mg/dL (0.55-1.02); EST CRCL DRUG DOSING (CG) 21.91 mL/min; POTASSIUM,K 3.7 mmol/L (3.5-5.1); PROTEIN TOTAL,TP 5.9 g/dL (6.4-8.2)
[2024-09-10 06:33] LABS: A/G RATIO 1.03
[2024-09-10] MEDS: Metoprolol Succinate 25 MG Tab.ER PO SCH (08:17)
[2024-09-10] MEDS: Rosuvastatin 10 MG Tab PO SCH (20:38)
[2024-09-10] MEDS: rOPINIRole 0.25 MG Tab PO SCH (20:39)
[2024-09-11 06:24] LABS: HEMATOCRIT 29.5 % (37.0-47.0); MEAN CORPUSCULAR HEMOGLOBIN 23.1 pg (27.0-34.0); MEAN CORPUSCULAR HGB CONC 30.5 g/dL (33.0-35.0); MEAN CORPUSCULAR VOLUME 75.6 fL (80-100); PLATELET COUNT,PLT 92 10^3/uL (150-450); WHITE BLOOD CELL COUNT,WBC 13.2 10^3/uL (5.0-10.0)
[2024-09-11 06:33] LABS: LYMPHOCYTES PERCENT AUTO 14.3 % (20.5-50.1); MONOCYTES PERCENT AUTO 11.5 % (2-8); NEUTROPHILS PERCENT AUTO 73.3 % (42.2-75.2)
[2024-09-11 06:34] LABS: BASOPHILS PERCENT AUTO 0.1 % (0.0-1.0); EOSINOPHILS PERCENT AUTO 0.8 % (1.0-3.0)
[2024-09-11 06:41] LABS: INR 1.5 (0.9-1.2); PROTHROMBIN TIME 15.5 SEC (9.0-12.0); PTT,PARTIAL THROMBOPLSTIN TIME 32.5 SEC (22.0-34.0)
[2024-09-11 06:46] LABS: ALBUMIN 2.9 g/dL (3.4-5.0); ANION GAP 11.8 mEq/L (7-13); BILIRUBIN TOTAL 2.1 mg/dL (0.2-1.0); BUN/CREATININE RATIO 37.5 (No establ ref range); CALCIUM 9.2 mg/dL (8.5-10.1); CREATININE 1.28 mg/dL (0.55-1.02); EST CRCL DRUG DOSING (CG) 27.72 mL/min; MAGNESIUM 2.1 mg/dL (1.8-2.4); POTASSIUM,K 3.8 mmol/L (3.5-5.1)
[2024-09-11 06:47] LABS: A/G RATIO 0.94
[2024-09-11 07:03] LABS: EOSINOPHILS PERCENT MAN 1 % (1-3); LYMPHOCYTES PERCENT MAN 11 % (20-50); MONOCYTES PERCENT MAN 9 % (2-8); SEG NEUTROPHILS PERCENT MAN 79 % (42-75)
[2024-09-11 10:38] VITALS: BP 101/45; PULSE 67
== END 2024-09-11 11:35 | disposition home or self-care (01) | DRG 690 ==
LOC: DL.ED 05:17 → DL.MS 07:55
PROVIDERS: ADMIT Internal Medicine; ATTEND Internal Medicine
DX: N30.01 Acute cystitis with hematuria (principal); E87.1 Hypo-osmolality and hyponatremia; B37.89 Other sites of candidiasis; I48.92 Unspecified atrial flutter; E78.00 Pure hypercholesterolemia, unspecified; Z66 Do not resuscitate; I13.0 Hypertensive heart and chronic kidney disease with heart failure and stage 1 through stage 4 chronic kidney disease, or unspecified chronic kidney disease; Z95.1 Presence of aortocoronary bypass graft; Z68.22 Body mass index [BMI] 22.0-22.9, adult; Z79.82 Long term (current) use of aspirin; R53.1 Weakness; I50.9 Heart failure, unspecified; I25.10 Atherosclerotic heart disease of native coronary artery without angina pectoris; K21.9 Gastro-esophageal reflux disease without esophagitis; M19.90 Unspecified osteoarthritis, unspecified site; N18.32 Chronic kidney disease, stage 3b; E78.5 Hyperlipidemia, unspecified; M81.0 Age-related osteoporosis without current pathological fracture; E80.6 Other disorders of bilirubin metabolism; E87.5 Hyperkalemia; W19.XXXA Unspecified fall, initial encounter; G20.A1 Parkinson's disease without dyskinesia, without mention of fluctuations; D69.6 Thrombocytopenia, unspecified; D50.9 Iron deficiency anemia, unspecified; G25.81 Restless legs syndrome; E03.9 Hypothyroidism, unspecified; F41.9 Anxiety disorder, unspecified; F32.A Depression, unspecified; E66.9 Obesity, unspecified; Z79.899 Other long term (current) drug therapy; Z85.828 Personal history of other malignant neoplasm of skin; Z98.49 Cataract extraction status, unspecified eye; Z95.5 Presence of coronary angioplasty implant and graft; Z90.49 Acquired absence of other specified parts of digestive tract; Z95.2 Presence of prosthetic heart valve; Z79.01 Long term (current) use of anticoagulants; Z90.710 Acquired absence of both cervix and uterus; Z88.8 Allergy status to other drugs, medicaments and biological substances; Z98.890 Other specified postprocedural states
CPT/HCPCS: 36415; 70450; 71045; 72125; 72131; 74176; 80053; 81001; 82140; 83605; 83690; 83735; 83880; 84484; 85025; 85610; 87086; 87428; 93005; 93010; 96360; 99284; 99285; J7040; 73080-RT; 82248; 82607; 82728; 82746; 83540; 83550; 84132; 84295; 84439; 84443; 85730; 94010; 97110-GP; 97161-GP; 97165-GO; 97530-GP; 99223; 99232; 99233; 99238; A9270-GY; J0456; J0696; J1940; J2405; J3490; J7050

== ENCOUNTER 2024-09-15 08:40 | Inpatient (IN) | payer MEDICARE, BC ==
[2024-09-15 08:45] LABS: MEAN CORPUSCULAR HEMOGLOBIN 23.7 pg (27.0-34.0); MEAN CORPUSCULAR HGB CONC 29.1 g/dL (33.0-35.0); MEAN CORPUSCULAR VOLUME 81.5 fL (80-100); PLATELET COUNT,PLT 153 10^3/uL (150-450); RED BLOOD CELL COUNT 2.11 10^6/uL (4.2-5.4); WHITE BLOOD CELL COUNT,WBC 17.5 10^3/uL (5.0-10.0)
[2024-09-15 08:53] LABS: BASOPHILS PERCENT AUTO 0.2 % (0.0-1.0); EOSINOPHILS PERCENT AUTO 0.1 % (1.0-3.0); HEMATOCRIT 17.2 % (37.0-47.0); LYMPHOCYTES PERCENT AUTO 8.5 % (20.5-50.1); MONOCYTES PERCENT AUTO 7.1 % (2-8); NEUTROPHILS PERCENT AUTO 84.1 % (42.2-75.2)
[2024-09-15 08:58] VITALS: BP 74/45; PULSE 67
[2024-09-15 09:01] LABS: INR 1.9 (0.9-1.2); PROTHROMBIN TIME 18.7 SEC (9.0-12.0)
[2024-09-15 09:04] LABS: B-TYPE NATRIURETIC PEPTIDE,BNP 1150 pg/ml (0-100)
[2024-09-15 09:07] LABS: ALANINE AMINOTRANSFERASE,ALT 24 U/L (14-59); ALBUMIN 2.4 g/dL (3.4-5.0); ALKALINE PHOSPHATASE 196 U/L (46-116); ANION GAP 21.1 mEq/L (7-13); ASPARTATE AMNIOTRANSFERASE,AST 35 U/L (15-37); BILIRUBIN TOTAL 2.6 mg/dL (0.2-1.0); BLOOD UREA NITROGEN,BUN 103 mg/dL (7-18); BUN/CREATININE RATIO 40.7 (No establ ref range); CALCIUM 9.1 mg/dL (8.5-10.1); CARBON DIOXIDE,CO2 19 mmol/L (21-32); CHLORIDE,CL 95 mmol/L (98-107); CREATININE 2.53 mg/dL (0.55-1.02); GLUCOSE RANDOM 121 mg/dL (70-99); MAGNESIUM 2.9 mg/dL (1.8-2.4); POTASSIUM,K 4.1 mmol/L (3.5-5.1); PROTEIN TOTAL,TP 5.1 g/dL (6.4-8.2); SODIUM,NA 131 mmol/L (136-145)
[2024-09-15 09:08] LABS: A/G RATIO 0.89; ESTIMATED GFR 19 mL/min (>=60)
[2024-09-15 09:12] LABS: LACTIC ACID 8.2 mmol/L (0.4-2.0)
[2024-09-15 09:36] LABS: BAND PERCENT MAN 2 %; LYMPHOCYTES PERCENT MAN 6 % (20-50); MONOCYTES PERCENT MAN 4 % (2-8); SEG NEUTROPHILS PERCENT MAN 88 % (42-75)
[2024-09-15] MEDS ORDERED: Atropine 1% Ophth Soln 5 ML Bottle SL PRN (09:56)
[2024-09-15] MEDS: LORazepam 2 MG/ML SDV IVPUSH PRN (11:07)
[2024-09-15] MEDS: Scopalamine 1mg/3day Transdermal Patch TOP ONE (11:11)
[2024-09-15] MEDS: Morphine 2 MG/ML SYRINGE IVPUSH PRN (13:18)
[2024-09-15] MEDS: Check SCOPOLAMINE Patch TRDERM SCH (21:26)
[2024-09-15] MEDS: Sodium Chloride 0.9% 10 ML Syringe FLUSH PRN (23:56)
[2024-09-16] MEDS: LORazepam 2 MG/ML SDV IVPUSH PRN (01:10)
== END 2024-09-16 03:12 | disposition expired | DRG 951 ==
LOC: DL.ED 08:40 → DL.MS 09:23
PROVIDERS: ADMIT Internal Medicine; ATTEND Internal Medicine
PROC: 0T9B70Z Drainage of Bladder with Drainage Device, Via Natural or Artificial Opening (ICD-10-PCS; principal; 2024-09-15)
DX: Z51.5 Encounter for palliative care (principal); M35.81 Multisystem inflammatory syndrome; G93.41 Metabolic encephalopathy; I21.A1 Myocardial infarction type 2; I10 Essential (primary) hypertension; I50.33 Acute on chronic diastolic (congestive) heart failure; K92.2 Gastrointestinal hemorrhage, unspecified; I13.0 Hypertensive heart and chronic kidney disease with heart failure and stage 1 through stage 4 chronic kidney disease, or unspecified chronic kidney disease; I48.92 Unspecified atrial flutter; Z95.5 Presence of coronary angioplasty implant and graft; Z79.890 Hormone replacement therapy; N17.9 Acute kidney failure, unspecified; D68.9 Coagulation defect, unspecified; E87.1 Hypo-osmolality and hyponatremia; E87.20 Acidosis, unspecified; Z66 Do not resuscitate; G20.A1 Parkinson's disease without dyskinesia, without mention of fluctuations; I25.10 Atherosclerotic heart disease of native coronary artery without angina pectoris; E78.00 Pure hypercholesterolemia, unspecified; K21.9 Gastro-esophageal reflux disease without esophagitis; M19.90 Unspecified osteoarthritis, unspecified site; M81.0 Age-related osteoporosis without current pathological fracture; F41.9 Anxiety disorder, unspecified; F32.A Depression, unspecified; I95.9 Hypotension, unspecified; N18.30 Chronic kidney disease, stage 3 unspecified; D64.9 Anemia, unspecified; E87.8 Other disorders of electrolyte and fluid balance, not elsewhere classified; R73.9 Hyperglycemia, unspecified; E83.52 Hypercalcemia; E83.42 Hypomagnesemia; E88.09 Other disorders of plasma-protein metabolism, not elsewhere classified; R29.6 Repeated falls; Z95.1 Presence of aortocoronary bypass graft; Z95.2 Presence of prosthetic heart valve; Z88.8 Allergy status to other drugs, medicaments and biological substances; Z79.82 Long term (current) use of aspirin; Z79.01 Long term (current) use of anticoagulants; Z79.899 Other long term (current) drug therapy; Z79.84 Long term (current) use of oral hypoglycemic drugs; Z86.0100 Personal history of colon polyps, unspecified; Z98.49 Cataract extraction status, unspecified eye; Z90.710 Acquired absence of both cervix and uterus; Z90.722 Acquired absence of ovaries, bilateral; Z90.79 Acquired absence of other genital organ(s); Z90.49 Acquired absence of other specified parts of digestive tract; Z98.890 Other specified postprocedural states
CPT/HCPCS: 36415; 51702; 80053; 83605; 83735; 83880; 84484; 85025; 85610; 86140; 87040; 87186; 93005; 93010; 99285; A9270-GY; J2060; J2270